=== PATIENT | male | born 1960 | race Hispanic/Latino ===

== ENCOUNTER 2016-09-02 00:26 | Inpatient (IN) | payer OTHER ==
[~2016-09-02] VITALS: Ht 170.2 cm; Wt 86.9 kg
[2016-09-02] VITALS (12 sets, daily range): BP systolic 93–127; BP diastolic 57–88; PULSE 92–111; RESP 16–31; O2SAT 88–96
--- NOTE | 2016-09-02 00:36 | ED.REPORT ---
HPI-Chest Pain 40 and Over Date of Service Sep 02, 2016 ED Provider: Dr. Johnson 56 y/o male with a hx of insulin dependent DM presents to the ED complaining of substernal chest pain that radiates to his left arm, onset an hour ago. The pt has been having chest pain for 2 weeks but it got significantly worse today. He describes it as "fullness and pressure" and rates it 5/10 in the ED. The pain is exacerbated with deep breathing. Associated sx include shortness of breath and "some sort of blockage in the abdomen". The pt did have a BM earlier today but his pain persisted. He denies using Aspirin or other blood thinners. He states his blood glucose at home was 172, in the ED, it is recorded at 157. Nursing Notes Stated Complaint: CHEST PAIN Nursing Notes Reviewed: Yes Allergies: Coded Allergies: No Known Allergies (Unverified , 09/02/16) Scheduled Amlodipine (Amlodipine) 10 Mg Tablet 10 MG PO DAILY Cabergoline (Cabergoline) 0.5 Mg Tablet 0.5 MG PO WEEKLY General Time Seen by MD: 00:53 Chief Complaint Chest pain Arrived By: Walk-in Sudden in Onset?: Yes Onset Occurred: 1 - 4 hours ago Symptom Duration: Since onset Location: : Substernal Quality: Fullness, Pressure Radiation: : Arm left Severity: Current: Pain level 5 out of 10 Severity: Maximum: Severe Recent Healthcare: No recent doctor visit Similar Sx Previous: No Past Medical History Past Medical History Reports: Diabetes mellitus Past Surgical History none reported Smoking History Unknown if Ever Smoker Ambulatory Status Independent Review of Systems Respiratory: Reports: Shortness of breath Cardiovascular: Reports: Chest pain Musculoskeletal: Reports: Extremity pain (left arm) Complete sys rev & neg: except as marked. Physical Exam Initial Vital Signs Vital Signs (First) Date Time Temp Pulse Resp B/P Pulse Ox O2 Delivery O2 Flow Rate FiO2 09/02/16 00:36 37.0 110 18 122/88 96 Room Air 09/02/16 01:10 3 Initial VS: Reviewed, Vital signs abnormal Head / Eyes: Atraumatic, Normocephalic Extremities: Vascular intact, Neuro intact, No swelling, No tenderness Skin: Warm, Dry, No cyanosis General/Constitutional: Awake, Alert, Cooperative Distress / Hydration: Positive: Distress moderate Respiratory / Chest: Atraumatic, Breath sounds NL, Breath sounds = bilat, No rales, No rhonchi, No chest tenderness Cardiovascular: Regular rhythm, Heart sounds NL, No gallop, No murmurs, No rubs Heart Rate / Rhythm: Positive: Tachycardia No edema Abdomen: Atraumatic, Soft Bowel Sounds / Distention: Positive: Bowel sounds tympanitic, Distention moderate Neck: Atraumatic, Supple, Full range of motion, No JVD Neurologic: Oriented X3, Speech NL, No motor deficits, No sensory deficits Interpretation & Diagnostics Lab Results Interpretation Result Diagram: 09/02/16 0040 09/02/16 0040 Test 09/02/16 00:20 09/02/16 00:40 09/02/16 00:50 White Blood Count 12.7th/mm3 (3.8-10.1) Red Blood Count 5.37mil/mm3 (4.40-5.80) Hemoglobin 15.8g/dL (13.8-17.2) Hematocrit 45.5% (41.0-50.0) Mean Corpuscular Volume 84.7fL (81-100) Mean Corpuscular Hemoglobin 29.4pg (27.0-35.0) Mean Corpuscular Hemoglobin Concent 34.7% (32.0-37.0) Red Cell Distribution Width 14.1% (12.3-15.4) Platelet Count 289bil/L (150-400) Neutrophils (%) (Auto) 74.2% (40-74) Lymphocytes (%) (Auto) 12.6% (14-46) Monocytes (%) (Auto) 9.8% (4-12) Eosinophils (%) (Auto) 3.0% (0-5) Basophils (%) (Auto) 0.2% (0-3) Sodium Level 136mEq/L (134-144) Potassium Level 3.9mEq/L (3.5-5.2) Chloride Level 93mEq/L (97-108) Carbon Dioxide Level 24mmol/L (18-29) Blood Urea Nitrogen 11mg/dL (6-24) Creatinine 0.91mg/dL (0.76-1.27) Estimat Glomerular Filtration Rate 92mL/min (>59) Glucose Level 174mg/dL (60-99) Calcium Level 9.2mg/dL (8.5-10.1) Total Bilirubin 1.3mg/dL (0.0-1.2) Aspartate Amino Transf (AST/SGOT) 84U/L (0-50) Alanine Aminotransferase (ALT/SGPT) 49U/L (0-44) Alkaline Phosphatase 85U/L (25-150) Total Protein 7.4g/dL (6.4-8.4) Albumin 4.0g/dL (3.4-5.0) Lactic Acid Level 1.3mmol/L (0.4-2.0) Lab Results Interpretation: Elevated white blood count and elevated troponin ECG Interpretation ECG Interpretation: Sinus tachycardia. Rate 110 Probable left atrial enlargement Nonspecific intraventricular conduction delay Age indeterminate inferior infarct Acute Extensive anterior infarct (LAD) Time: 00:32 Interpreted by: ED physician X-Ray Chest Interpretation Chest Xray Interpretation: Increased heart size. Vascular markings consistent with CHF View: Portable, 1 view Interpretation / Wet Read by: Wet read ED physician Re-Eval/Medical Decision Med Decision/Clinical Course 56-year-old male with several hours of chest pain. He is hemodynamically stable with mild tachycardia. His EKG shows acute STEMI. He was treated with aspirin, IV metoprolol, IV heparin, topical nitroglycerin, and by mouth clopidogrel. Dr. Juarez in the cath team were immediately notified and took the patient to the [facility] for evaluation and treatment. Source of Hx: Old records Time of Eval: 01:16 Re-Evaluation/Progress Note: Rechecked pt. Discussed lab results, imaging results, diagnosis and plan to admit. Pt understands and agrees with the plan for admission. All questions addressed. Consultation : Referral / Consult Name: Dinorah Carter MD Consulted With: Hospitalist Call Returned at: 01:24 Stope Miner: Will see patient, Agrees with eval, Agrees with plan, Accepts admit Counseled Regarding: Diagnosis, Need for admission Discharge & Departure Primary Impression: STEMI (ST elevation myocardial infarction) Involved coronary artery: unspecified coronary artery Qualified Code: I21.3 - ST elevation (STEMI) myocardial infarction of unspecified site Disposition: ADMITTED TO HOSPITAL Discharge Condition All VS Reviewed: Yes Referrals: Donnie Bruce MD (PCP) Crit Care Except Billable Proc Time Spent: 30-74 minutes (55 min) Services Performed: Patient management by me, Time spent at bedside, Reviewing test results, Reviewing imaging, Discussing patient care, Documentation in record Critical Care Notes: STEMI stabilized and taken to the [facility]. Scribe Attestation Portions of this note were transcribed by Phoenix Peck. I, , personally performed the history, physical exam and medical decision- making;I reviewed and confirmed the accuracy of the information in the transcribed note. Signed by Javier Valente. 09/02/16 01:55 copies to: Donnie Bruce MD, Howard L MD Sep 02, 2016 00:36 Phoenix Peck Sep 02, 2016 01:29
[2016-09-02] MEDS ORDERED: Heparin 5,000 Unit/mL Inj ONE (00:47)
[2016-09-02 00:50] LABS: BASOPHILS % (AUTO) 0.2 % (0-3); MONOCYTES % (AUTO) 9.8 % (4-12); Mean Corpuscular Hemoglobin 29.4 pg (27.0-35.0); Mean Corpuscular Volume 84.7 fL (81-100); NEUTROPHILS % (AUTO) 74.2 % (40-74); Platelet Count 289 bil/L (150-400)
[2016-09-02] MEDS ORDERED: Nitroglycerin 2% 1 Gm Ointment TOPICAL ONE (00:50)
[2016-09-02] MEDS ORDERED: MeTOProlol 1 mg/mL 5 mL Inj ONE (00:54)
[2016-09-02] MEDS ORDERED: Nitroglycerin 50,000 mcg/250 mL D5W Premix IV ONE (00:58)
[2016-09-02] MEDS ORDERED: 0.9% Sodium Chloride 1,000 ML ONE (00:58)
[2016-09-02] MEDS ORDERED: Heparin 1,000 Unit/mL 10 mL Inj ONE (00:58)
[2016-09-02] MEDS ORDERED: Heparin 10,000 Unit/1,000 mL NS Premix IV ONE (00:58)
[2016-09-02] MEDS ORDERED: Heparin 1,000 Units/500 mL NS Premix IV ONE (00:58)
[2016-09-02] MEDS ORDERED: fentaNYL-PF 50 mCg/mL 2 mL Inj ONE (01:31)
[2016-09-02 01:35] LABS: TROPONIN T 0.849 ug/L (0.0-0.011)
[2016-09-02] MEDS ORDERED: DOPamine 800 mg/250 mL D5W Premix IV ONE (01:42)
[2016-09-02] MEDS ORDERED: 0.9% Sodium Chloride 1,000 ML IV SCH (02:36)
[2016-09-02] MEDS ORDERED: Alum-Mag Hydrox-Simeth 30 mL Suspension PO PRN (02:40)
[2016-09-02] MEDS ORDERED: Ondansetron 2 mg/mL 2 mL Inj IVPUSH PRN (02:40)
[2016-09-02] MEDS ORDERED: Glucose 40% Oral Gel 15 Gm Tube PO PRN (03:00)
--- NOTE | 2016-09-02 04:15 | PCM.HPMED ---
Subjective Date of Service Sep 02, 2016 Primary Provider: Admitting Physician: Dinorah Carter MD Primary Care Physician: Donnie Bruce MD Attending Physician: Dinorah Carter MD Admit Status: From the Emergency Department Chief Complaint: Chest pain History of Present Illness: 56 y/o male with a hx of insulin dependent DM type II who presented to the ED complaining of substernal chest pain scribed as a pressure and bandlike sensation around his chest with 7 out of 10 chest pain onset approximately 11: 30 Friday night 09/01/2016, the pain occurred while he was exerting himself walking. The pain radiates to his left arm, and is associated with diaphoresis , shortness of breath, and abdominal pain. The pt has been having chest pain for 2 weeks but it got significantly worse today. The pain is exacerbated with deep breathing. The patient describes his abdominal pain as, "some sort of blockage in the abdomen". He states that he has taken laxatives and done enemas and has passed a bowel movement but without relief of his abdominal discomfort and distention. He denies using Aspirin or other blood thinners. He states his blood glucose at home was 172, in the ED, it is recorded at 157. In the ED the patient had EKG showed sinus tachycardia with a rate of 110, extensive ST elevation in leads V1 through V5 and ST segment depression in V6, consistent with anterior lateral infarct. troponin 0.849 Patient was taken to the [facility] by Dr. Juarez for emergent percutaneous coronary intervention. And he was found to have 90% stenosis of his LAD. Patient had stent placed. Vital signs in the ED showed: Temperature 37.0, pulse 110, respiratory rate 18, blood pressure 128/88, pulse ox 96% on room air. Patient at time of this note was satting at 93% on 3 L oxygen mask. In the ED received metoprolol tartrate 15 mg once. Nitroglycerin paste 1 inch once. Plavix 300 mg once area Nitrostat sublingual 0.4 mg once. Aspirin 81 mg. Hemogram showed WBC 5.7, PMNs 74.2%, lymphs 12.6% H/H 15.8/45.5, platelets 289, Chemistry panel: Significant for glucose of 174, total bilirubin elevated 1.3, AST/ALT 84/49 with an alkaline phosphatase of 85, troponin 0.849 TSH is pending CK MB pending Review of Systems: A comprehensive review of systems was conducted and was negative except as mentioned in history of present illness. 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 HEENT: NC/AT, eyes, pupils pinpoint, arcus senilis, PERRLA, EOMI, neck, soft supple, no adenopathy, no JVD, no masses, no thyromegaly, throat mucous membranes pink and moist, no erythema, no exudates, no tonsillar swelling, no uvular deviation. Lungs: Bilateral base with crackles, no use of accessory muscles of respiration , good air movement, good respiratory effort. Heart: Regular rate and rhythm, no murmur, S1-S2 present, no rub, no click, no distant heart sounds, Abdomen: Tympanic to percussion, distended, nontender, bowel sounds active, no rebound, no guarding, Genitourinary: No CVA tenderness, no suprapubic tenderness, no Mays catheter, Extremities: Right lower extremity groin with bandage from recent PCI, pulses equal and symmetric upper/lower extremity including radial and dorsalis pedis, no edema Neurologic: Grossly neurologically intact, aching in full sentences, no focal neurological signs, [id number], [id number], no pronator drift, no hemineglect. Skin: Mildly diaphoretic, otherwise no rash, bandage covering the right groin from PCI seizure Psychiatric mood and affect are congruent and appropriate. Lab and Diagnostics Result Diagram: 09/02/163909/02/1639 Assessment & Plan # Chest pain, NSTEMI, Acute coronary syndrome, present on admission, active -Of note patient had echo done by Dr. Sandoval and cardiac stress testing, per patient approximately 2 years ago with recommendation at that time for cath procedure. She states he declined the cath procedure. -In the ED received metoprolol tartrate 15 mg once. Nitroglycerin paste 1 inch once. Plavix 300 mg once area Nitrostat sublingual 0.4 mg once. Aspirin 81 mg. -Troponin 0.849 -CK-MB ordered and pending -TSH ordered and pending -EKG with severe ST segment elevation in leads V1 to V5 and ST segment depression in lead 6 consistent with a anterior lateral NH. -She was taken to the [facility] by Dr. Barker for PCI. Retrograde left heart cath with balloon angioplasty and stent to left LAD which had 90% stenosis in the proximal portion. 99% stenosis of the mid right coronary artery LVEF of 15%. -We will continue pain control with morphine -Continue daily aspirin 325 mg -Continue with Plavix daily to 75 milligrams -We will continue home medication amlodipine 10 mg daily -Continue medication losartan -Nitroglycerin as needed, but will be careful given blood pressures -We will start high-dose statin atorvastatin 40 mg daily -We will hold off on starting metoprolol given current blood pressures 100 systolic -Continuous cardiac monitoring/blood pressure monitoring -We will order lipid panel -Heart healthy diet -We thank cardiology Dr. Barker for this consult. # Acute abdominal pain, and distention, present on admission, active - bilirubin elevated 1.3, AST/ALT 84/49 with an alkaline phosphatase of 85 -Physical exam significant for tympanic abdomen that is protuberant. -The patient states that his abdominal distention and discomfort has improved since his catheterization procedure however remains somewhat distended. -Differential diagnosis, cholecystitis, ileus versus SBO, no history of prior surgeries. -He states he did have a bowel movement prior to admission but this made no difference with his abdominal distention or discomfort. -If symptoms continue or worsen would consider getting abdominal imaging abdominal ultrasound to evaluate gallbladder, or CT to look for SBO although patient not a candidate for contrast given his recent catheterization. -Will order lactic acid # Acute leukocytosis with left shift, as on admission, active -Likely secondary to STEMI -Patient at time of this note was satting at 93% on 3 L oxygen mask. -Vital signs in the ED showed: Temperature 37.0, pulse 110, respiratory rate 18 , blood pressure 128/88, pulse ox 96% on room air. -WBC 12.7, PMNs 74.2 -CXR showed no acute cardiopulmonary disease # Hyperglycemia in a known type II diabetic - Glucose 174 - Hemoglobin A1c pending - We will hold oral anti-hyperglycemics - We will continue long-acting insulin - We will start low-dose correctional scale - addition of long acting insulin with elevation of glucose # Prolactinoma, presumed stable, - Patient states he has had a prolactinoma for the past 10 years - On Cabergoline, significant other to bring in medications and dosages. We will plan to continue this medication once med rec complete # Hypertension - Patient takes amlodipine 10 mg daily - On losartan dose unknown at this time. - We will plan to continue his antihypertensive medications when med rec complete - We will continue to monitor blood pressures while in-house # Hypothyroidism -Continue medication levothyroxine 12.5 micrograms Disposition: Admitted to in patient service with expected length of stay greater than 2 days, secondary to severity of presenting symptoms, treatment plan, complexity of clinical work up, and risk of adverse events. CODE STATUS: Full code PCP: [facility] Writer/Runner Dr. Sandoval DVT PE prophylaxis: SCD's/SubQ heparin Q8H Contact: Jemma [phone] VTE Prophylaxis: Sub-Q Heparin (Unfractionated), SCDs Resuscitation Status: CPR: Attempt Resuscitation Attending Statement The patient was seen and examined together with house staff on 09/02/2016 and I agree with the history, exam and plan as outlined in the note above. Cole Gregg DO Sep 02, 2016 04:15 Yajaira Edgar DO Sep 02, 2016 06:18
[2016-09-02 04:17] LABS: Magnesium 2.1 mg/dL (1.6-2.6)
[2016-09-02] MEDS ORDERED: Atropine 1 mg/10 mL (Code) Syringe IVPUSH PRN (04:25)
--- NOTE | 2016-09-02 04:26 | HP ---
[address] [address] HISTORY AND PHYSICAL PATIENT: KRISS CASTRO : 1960 MR#: [id number] ADMIT: 09/02/2016 JOB ID: [id number] DATE OF ADMISSION: 09/02/2016 CHIEF COMPLAINT: Chest discomfort. HISTORY OF PRESENT ILLNESS: The patient is a 56-year-old male with history of diabetes, hypertension, and hypercholesterolemia. The patient was in his usual state of health until tonight around 11:30 p.m. when he suddenly developed chest discomfort. It happened while he was walking. He rated it about 7/10. He described as a heavy pressure type. It has radiated to his left arm and his neck. It was associated with shortness of breath and diaphoresis. The patient drove himself to [facility] Emergency Department. EKG showed anterior wall ST-segment elevation. STEMI protocol was activated. PAST MEDICAL HISTORY: 1. Diabetes mellitus for 10 years. 2. Hypertension. 3. Hypercholesterolemia. 4. Pituitary microadenoma. CURRENT MEDICATIONS: 1. Insulin. 2. Amlodipine. 3. Medication for pituitary microadenoma. 4' Losartan. 5. Levothyroxine. ALLERGIES: No known allergies. SOCIAL HISTORY: The patient lives in [place]. He has never smoked. He drinks a couple drinks per week. FAMILY HISTORY: No history of premature coronary artery disease. PHYSICAL EXAMINATION: Reveals a middle-aged male, appearing in no acute distress. Temp is 36.1. Blood pressure is 104/72. Pulse 94. Skin is warm and dry. Face has normal configuration. Anicteric sclerae. Moist mucosa. Neck supple. No jugular venous distention or carotid bruits. Chest normal expansion. Lungs are clear to auscultation. Heart the first and second heart sounds normal. S3 is present. No murmur. Abdomen soft, nontender. No hepatosplenomegaly. Extremities no clubbing, cyanosis, or edema. Peripheral pulses are diminished. Neurologic grossly intact. IMPRESSION: 1. Acute anterior myocardial infarction. 2. Diabetes mellitus. 3. History of hypertension. 4. Hypercholesterolemia. 5. Pituitary microadenoma. PLAN: The patient received aspirin 324 mg, clopidogrel 600 mg, and heparin 5,000 unit in the emergency department. He will undergo emergent coronary angiogram and possible percutaneous intervention. The risks of the procedure has been explained to the patient. He understands and agrees to proceed with the procedure. His regular table tender sludge is Dr. Sandoval. BETO
--- NOTE | 2016-09-02 04:40 | DI95 ---
[place] [id number] INTERVENTIONAL CARDIAC CATHETERIZATION PATIENT: KRISS CASTRO : 1960 MR#: [id number] ADMIT: 09/02/2016 JOB ID: [id number] DATE OF PROCEDURE: 09/02/2016 PATIENT PROFILE: The patient is a 56-year-old male with history of diabetes, hypertension, hypercholesterolemia, and pituitary microadenoma. He presented with acute anterior myocardial infarction. PROCEDURE: 1. Retrograde left heart catheterization. 2. Selective coronary angiography. 3. Balloon angioplasty and stenting to the proximal left anterior descending. 4. Left ventricular angiogram. 5. Vascular closure device Perclose. COMPLICATIONS: None. METHOD: Retrograde left heart catheterization was performed from the right groin under 1% lidocaine local anesthesia using a 6-Brazilian sheath. Selective coronary angiogram was performed in multiple projections, including cranial and caudal angulations with hand injected contrast via JL4 and 3DRC catheters. Heparin 100 units/kg were given. The guide catheter was changed to a 6-Brazilian JL3.5 guide. A Runthrough wire was placed inside the left anterior descending artery. The proximal left anterior descending artery lesion was pre-dilated with a 2.5 x 15 mm balloon. A Xience 2.75 x 15 mm stent was placed inside the proximal left anterior descending artery lesion and deployed at 10 atmospheres for 20 seconds. After this stent deployment appears to be another distal lesion. A Xience 2.5 x 8 mm stent was placed distal to the first stent and deployed at 14 atmospheres for 20 seconds. Nitroglycerin 100 mcg was given intracoronary. The distal left anterior descending artery lesion was dilated with a 2.0 x 15 mm balloon. Final angiogram was obtained. A 6-Brazilian angulated pigtail catheter was advanced to the left ventricle and left sina angiogram was performed in the 30 degree MARTINEZ view by injecting contrast at the rate of 10 cc/second for 3 seconds and this catheter was withdrawn. Angiogram was performed before sheath removal, hemostasis was achieved by using a Perclose device. The patient tolerated the procedure well. He was transferred to Intensive Care Unit in good condition. TOTAL CONTRAST USED: 140 cc. FLUOROSCOPY TIME: 5.8 minutes. TOTAL RADIATION DOSE: 826 milligray. RESULTS: 1. Selective angiogram: a. Left main coronary artery is short and normal. b. Left anterior descending artery is transapical and has severe eccentric 98% stenosis in the proximal portion with diffuse disease throughout and it becomes occluded in the distal portion just right at the apex. The diagonal branches has diffuse severe stenosis. c. Circumflex artery has diffuse disease with 60% stenosis in the midportion and 40% to 50% stenosis in the distal portion. d. The dominant right coronary artery has critical 99% stenosis in the midportion with ROBERT-1 flow. There is left to right collaterals. 2. Balloon angioplasty and stenting was performed to the tight culprit proximal left anterior descending artery lesion by deploying 2 drug-eluting stents to achieve an excellent angiographic result with ROBERT-3 flow distally. 3. The distal left anterior descending artery is too small. 4. Left ventricular angiogram demonstrated dilated left ventricle with ejection fraction 15% to 20%. The apical 2/3 of the anterolateral wall is akinetic. The inferior wall is akinetic. The small apical segment is dyskinetic. Only the of the anterolateral wall contract normally. 5. There is no gradient across the aortic valve on catheter withdrawal. 6. Aortic pressure is 93/67 mmHg. Left ventricular pressure is 92/18 mmHg. 7. Left ventricular end-diastolic pressure is 34 mmHg. CONCLUSION: 1. Diffuse atherosclerotic plaque throughout, typical of diabetes. 2. Critical 98% stenosis of the proximal left anterior descending artery and this was successfully treated with two drug-eluting stents. 3. Critical 99% stenosis of the mid right coronary artery with ROBERT-1 flow with faint left to right collaterals. 4. Left ventricular ejection fraction 15%. 5. LVEDP is 34 mmHg. PLAN: Intervention to the mid right coronary artery will be performed later. BETO
--- NOTE | 2016-09-02 05:16 | NUR ---
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, pt drowsy but oriented times three, coop, compliant with post cath activity, admit info done per info from pt, pt's melanie will bring in his med list in am and she also took pt's wallet home with her, pulses present, right groin soft, dressing with dime size superficial drainage on it but no hematoma, hnv denies n/v, abd snt, bt present, sarah sips h20 post cath, ivf at 80ml/hr for six hours, denies cp/pressure, tele- sr, post cath ekg done, denies sob, pt on oxymask at three liters, sats mid 90's, pt is mouth breather, ls-cl/decreased see ccu flow sheet, see admit charting, Addendum: 09/02/16 at 0644 by ETHAN MONTIEL RN pt denies cp/pressure or arm discomfort like when he came to er, pt c/o abd distention/bloating, abd round/soft, resident in to see pt, abd us ordered,
[2016-09-02 05:35] LABS: TROPONIN T 3.94 ug/L (0.0-0.011)
[2016-09-02] MEDS ORDERED: AMLO10TA3 PO (06:48)
[2016-09-02] MEDS ORDERED: CABE0.5T7 PO (06:50)
[2016-09-02] MEDS ORDERED: LEVO-86 PO (07:05)
[2016-09-02] MEDS ORDERED: LOSA1TAB69 PO (07:06)
[2016-09-02] MEDS: Heparin 5,000 Unit/mL Inj SUBQ SCH ×2 (07:53→16:41)
--- NOTE | 2016-09-02 08:00 | DRSVH ---
PROCEDURE: X-RAY CHEST ONE VIEW, PORTABLE ([id number]) INDICATIONS: 56-year-old male with ST elevation myocardial infarction chest pain. TECHNIQUE: One view of the chest was acquired. COMPARISON: None. FINDINGS: Surgical changes and devices: None. Lungs and pleura: No pleural effusions or pneumothorax. Widespread pulmonary interstitial prominence is present. No acute airspace opacities. Mediastinum: Mediastinal contours appear normal. Heart size is normal. Bones and chest wall: No suspicious bony lesions. Overlying soft tissues appear unremarkable. Visua lized upper abdominal bowel gas pattern appears normal. IMPRESSION: Diffuse interstitial pulmonary edema, consistent with evolving congestive heart failure. Dictated by: Anderson Costa M.D. on 09/02/2016 at 7:57 Approved by: Anderson Costa M.D. on 09/02/2016 at 7:58
[2016-09-02] MEDS ORDERED: HCTZ PO SCH (08:30)
[2016-09-02] MEDS ORDERED: LOSARTAN PO SCH (08:30)
--- NOTE | 2016-09-02 09:04 | DRSVH ---
PROCEDURE: US ABDOMEN INDICATIONS: Abdominal distention and elevated LFTs and bili TECHNIQUE: Real-time scanning was performed of the abdominal and retroperitoneal organs, with image documentatio n. COMPARISON: None. FINDINGS: Liver length: 18.9 Gallbladder Wall Thickness: 2 mm CHD: 1.70 mm CBD: 2.30 mm Spleen length: 9.53 cm Right kidney length: 12.12 cm Left kidney length: 12.17 cm Aorta(Proximal): 2.53 cm Aorta(Mid): 1.84 cm Aorta(Distal): 1.95 cm RCIA: Obscured LCIA: Obscured Liver: Liver is mildly enlarged in size and hyperechoic in echotexture. There is suspected fatty spa ring adjacent to the gallbladder fossa. Gallbladder: Gallbladder is clear with normal wall thickness. No pericholecystic free fluid. No repor alesha positive Carvajal's sign. Biliary ducts: Intrahepatic bile ducts are non-dilated. Extrahepatic bile duct caliber is normal. Normal is 6-7 mm or less in diameter, or 10 mm or less post-cholecystectomy. Pancreas: Visualized portions of the pancreas are sonographically normal. Spleen: Spleen is normal in size and homogeneous in echotexture. Kidneys: Kidneys are normal in size and echotexture. No hydronephrosis or measurable nephrolithiasi s, bright reflectors bilaterally possibly representing small calcifications. No solid masses. Aorta: Visualized aorta is normal in caliber at less than 3 cm. distal aorta not well-seen. Iliacs: Iliac vessels are obscured by bowel gas. IVC: Intrahepatic inferior vena cava is patent. Miscellaneous: No free abdominal fluid. Small bilateral pleural effusions. IMPRESSION: 1. Borderline hepatomegaly without splenomegaly. Probable hepatic steatosis but nonspecific. 2. Normal gallbladder and bile ducts. 3. No hydronephrosis. Possibility of small nonobstructing renal calculi not excluded. 4. No ascites. Small bilateral pleural effusions incidentally noted. Dictated by: Kai Echols M.D. on 09/02/2016 at 8:56 Approved by: Kai Echols M.D. on 09/02/2016 at 9:02
[2016-09-02] MEDS: Insulin LISPRO 300 Unit/3 mL Inj SUBQ SCH ×4 (09:09→21:07)
[2016-09-02 10:23] LABS: TROPONIN T 5.82 ug/L (0.0-0.011)
[2016-09-02] MEDS ORDERED: Lactulose 20 Gm/30 mL 30 mL Syrup PO ONE (12:05)
--- NOTE | 2016-09-02 14:13 | NUR ---
Post heart cath/cardiac/GI R groin site soft, scant old blood under clear dsg, palpable pedal pulses. Denies CP/Pressure. ST low 100s to 1-teens, ST depression still present. Pt c/o significant abd distention and bloating, that has been ongoing for the last few days. Denies nasuea. Reports distention makes it difficult to breathe. Abd US done, see results. Lactulose PO administered, Fleetz enema ordered, will administer this afternoon. 3L NC to maintain SpO2 92-94%. Uses call light to make needs known. Addendum: 09/02/16 at 1701 by YUNIOR LOPEZ RN Post lactulose pt has had BM x3. Declines enema.
--- NOTE | 2016-09-02 15:15 | PCM.PNMED ---
Subjective Date of Service Sep 02, 2016 Subjective Overnight the patient was admitted for a STEMI where Dr. Barker stented him. Since then he has been stable, denying chest pain and SOB. His only complaint is the feeling of a full abdomen. He has tried a suppository and enema prior to admission but without success. He denies any fever/chills, nausea or vomiting, diarrhea. Exam Vital Signs Vital Sign - Last Date Time Temp Pulse Resp B/P Pulse Ox O2 Delivery O2 Flow Rate FiO2 09/02/16 12:08 36.7 103 20 103/66 90 Nasal Cannula 4.00 Intake and Output 09/01/16 09/01/16 09/02/16 Cumulative From/Thru 15:00 23:00 07:00 09/02/16 00:36 - 09/02/16 06:11 Intake Total 481 ml 481 ml Output Total 0 ml 0 ml Balance 481 ml 481 ml Intake Oral 200 ml 200 ml IV Total 281 ml 281 ml Output Urine Total 0 ml 0 ml # Bowel Movements 0 0 Exam General: Elderly male laying on his side in NAD HEENT: NCAT, PERRLA, EOMI, membranes pink and moist Neck: soft supple, no adenopathy, no JVD, no masses, no thyromegaly Lungs: poor inspiratory effort but clear to ascultation bilaterally, no wheezes/ rales/rhonchi Heart: RRR, normal S1-S2 present, no murmur/rub/click Abd: Taunt, distended but without tenderness. Bowel sounds present, tympanic on percussion. No guarding. Genitourinary: No CVA tenderness, no suprapubic tenderness, no Mays catheter, Extremities: Right lower extremity groin with bandage from recent PCI, no clubbing/cyanosis/edema Neurologic: CN 2-12 intact, muscle strength normal in all extremities. No focal deficits. Skin: Mildly diaphoretic, otherwise no rash, bandage covering the right groin from PCI procedure Psychiatric normal mood and affect IVs and Medications Medications Reviewed: Medications were reviewed in detail Medications Stopped captopril due to his losartan/HCTZ combo 09/02 Lab and Diagnostics Result Diagram: 09/02/16 0040 09/02/16 0320 Microbiology MRSA negative X-Rays, CTs and MRIs CXR 09/02 IMPRESSION: Diffuse interstitial pulmonary edema, consistent with evolving congestive heart failure. Dictated by: Anderson Costa M.D. on 09/02/2016 at 7:57 Approved by: Anderson Costa M.D. on 09/02/2016 at 7:58 Abd 09/02 IMPRESSION: 1. Borderline hepatomegaly without splenomegaly. Probable hepatic steatosis but nonspecific. 2. Normal gallbladder and bile ducts. 3. No hydronephrosis. Possibility of small nonobstructing renal calculi not excluded. 4. No ascites. Small bilateral pleural effusions incidentally noted. Dictated by: Kai Echols M.D. on 09/02/2016 at 8:56 Approved by: Kai Echols M.D. on 09/02/2016 at 9:02 Assessment & Plan 56 y/o male with a hx of insulin dependent DM type II who presented to the ED complaining of substernal chest pain scribed as a pressure and bandlike sensation around his chest with 7 out of 10 chest pain onset approximately 11: 30 Friday night 09/01/2016, the pain occurred while he was exerting himself walking. The pain radiates to his left arm, and is associated with diaphoresis , shortness of breath, and abdominal pain. The pt has been having chest pain for 2 weeks but it got significantly worse today. The pain is exacerbated with deep breathing. The patient describes his abdominal pain as, "some sort of blockage in the abdomen". He states that he has taken laxatives and done enemas and has passed a bowel movement but without relief of his abdominal discomfort and distention. He denies using Aspirin or other blood thinners. He states his blood glucose at home was 172, in the ED, it is recorded at 157. Chest pain due to NSTEMI, present on admission, resolved - Pt presented with chest pain, EKG severe ST segment elevation in leads V1 to V5 and ST segment depression in lead 6 - Troponin 3.94, CK-MB 289 on admission - Pt taken to cathode [facility] tube salvage [facility] with Dr. Barker on 09/02: 1. Diffuse atherosclerotic plaque throughout, typical of diabetes. 2. Critical 98% stenosis of the proximal left anterior descending artery and this was successfully treated with two drug-eluting stents. 3. Critical 99% stenosis of the mid right coronary artery with ROBERT-1 flow with faint left to right collaterals. 4. Left ventricular ejection fraction 15%. 5. LVEDP is 34 mmHg. -Continue pain control with morphine -Continue daily aspirin 325 mg -Continue with Plavix daily to 75 milligrams -Continue home medication amlodipine, losartan -Start carvedilol 6.125 mg daily -Start atorvastatin 40 mg daily -Continuous cardiac monitoring/blood pressure monitoring -Lipid panel pending -Heart healthy diabetic diet -Pt will need to be NPO 09/03 in preparation of his RCA stent with Dr. Barker on 09/04 Acute abdominal pain, and distention, present on admission, active -Bilirubin elevated 1.3, AST/ALT 84/49 with an alkaline phosphatase of 85 -Exam significant for tympanic abdomen that is protuberant. -Cholecystitis vs ileus vs SBO, no history of prior surgeries. -Lactic acid 1.3 -Abd US as above -Lactulose, mineral oil enema ordered for constipation relief Acute leukocytosis with left shift, as on admission, active -Likely secondary to STEMI -Patient at time of this note was satting at 90% on 4L nasal cannula. -Vital signs are tachycardic but afebrile, pt denies fever/chills/nausea/ vomiting/diarrhea -WBC 12.7, PMNs 74.2 -CXR showed no acute cardiopulmonary disease -Continue to trend CBC and vitals Hyperglycemia in a known type II diabetic, present on admission, ongoing - Glucose 190 - Hemoglobin A1c pending - Hold oral anti-hyperglycemics - Continue long-acting insulin - Low-dose correctional scale - addition of long acting insulin with elevation of glucose Prolactinoma, presumed stable, - Patient states he has had a prolactinoma for the past 10 years - On Cabergoline 0.5mg daily Hypertension - Continue amlodipine 10 mg daily - Continue losartan 50mg daily - Start carvedilol 6.125mg daily - We will continue to monitor blood pressures while in-house Hypothyroidism -Continue medication levothyroxine 12.5 micrograms Disposition: Patient will likely be admitted for the next 2-3 days, depending on the resolution of his abdominal issues and response to upcoming catheterization procedure on Monday 09/04. CODE STATUS: Full code PCP: Dr. Bruce Formula Maker Dr. Sandoval DVT PE prophylaxis: SCD's/SubQ heparin Q8H Contact: Jemma [phone] Pain Evaluation: Adequate Pain Control VTE Prophylaxis: Sub-Q Heparin (Unfractionated), SCDs Resuscitation Status: CPR: Attempt Resuscitation Attending Statement The patient was seen and examined together with Dr. Quigley on 09/02/2016 and I agree with the history, exam and plan as outlined in the note above. . Koko Quigley DO Sep 02, 2016 15:15 Miguel Gordon MD Sep 02, 2016 17:04 Resuscitation Status: CPR: Attempt Resuscitation Koko Quigley DO Sep 02, 2016 15:15
[2016-09-02 16:47] LABS: TROPONIN T 5.3 ug/L (0.0-0.011)
--- NOTE | 2016-09-02 18:40 | NUR ---
Groin site minimal sanguineous drainage, no oozing/swelling/hematoma noted. Moving in room independently, denies chest pain, patient states he will take more lactulose in the AM. Tele sinus tach 100s with ST depression.
[2016-09-03] VITALS (10 sets, daily range): BP systolic 94–127; BP diastolic 61–86; PULSE 92–106; RESP 18–24; O2SAT 91–96
[2016-09-03] MEDS: Heparin 5,000 Unit/mL Inj SUBQ SCH ×3 (00:36→16:21)
[2016-09-03 05:16] LABS: BASOPHILS % (AUTO) 0.2 % (0-3); EOSINOPHILS % (AUTO) 1.8 % (0-5); MONOCYTES % (AUTO) 10.4 % (4-12); Mean Corpuscular Hemoglobin 28.9 pg (27.0-35.0); Mean Corpuscular Volume 85.6 fL (81-100); NEUTROPHILS % (AUTO) 76.4 % (40-74); Platelet Count 310 bil/L (150-400)
--- NOTE | 2016-09-03 05:59 | NUR ---
Tele/mobility/sats Tele continues sinus rhythm in 's. Denies chest pain and has been up ad alexey in room without dizziness, or other problems. Right groin site remains soft and without bruising or tenderness. Continues on 4 liters nasal cannula.
[2016-09-03] MEDS: Lactulose 20 Gm/30 mL 30 mL Syrup PO PRN (06:19)
--- NOTE | 2016-09-03 08:26 | PROG NOTE ---
[address] [address] PROGRESS NOTE PATIENT: KRISS CASTRO : 1960 MR#: [id number] ADMIT: 09/02/2016 JOB ID: [id number] DATE: 09/03/2016 SUBJECTIVE: The patient is a 56-year-old male who was previously evaluated by Dr. Sandoval in 2014 because of exertional dyspnea with an echocardiogram that suggested an ejection fraction of around 45% to 50% and myocardial perfusion imaging study in May 2014 that showed a small reversible perfusion defect in the inferior wall, but no angina. Cardiac catheterization was offered, but was deferred. He last saw Dr. Snadoval on March 20, 2015. He was reportedly asymptomatic and had a blood pressure 168/76. Repeat echocardiography was ordered, but never accomplished, and he was lost to followup until he was admitted yesterday with a 2-week history of exertional chest pain culminating in severe substernal chest discomfort that awakened him from sleeping. He was found to have anterior ST elevation and a positive troponin and was taken to the cardiac catheterization laboratory where he was found to have a 98% proximal LAD lesion with complete occlusion of the apical portion of the LAD and this was treated with two drug-eluting stents to the proximal LAD. There is a 60% to 70% stenosis in the mid left circumflex and a subtotal occlusion in the mid right coronary artery. His ejection fraction was estimated at 15-20% with severe hypokinesis and akinesis of the distal 2/3 of the left ventricle. LVEDP was 34 mmHg. There are plans to have him repeat angiography with probable PCI to the RCA tomorrow. He has had no further chest discomfort, although continues to complain of abdominal distention, which has been present for the last 4-5 days with a sense of restricted breathing, although this has improved with laxatives. He has had fleeting chest discomfort this morning, but none otherwise. His breathing is somewhat worse while supine, but again relates this more to the abdominal discomfort. He had an abdominal ultrasound yesterday, which was unremarkable. PHYSICAL EXAMINATION: Comfortable appearing middle-aged male. HR 92, BP 106/61, O2 saturation 91% on room air. Blood pressures have been in the 90-100 range. Weight this morning is 89.1 kg from 87.23 kg on admission. Lungs somewhat reduced breath sounds, but no appreciable rales or wheeze. Cardiovascular regular rate and rhythm, slightly tachycardic without any appreciable murmurs or gallops. JVP is difficult to assess. Abdomen soft, nondistended, nontender. Extremities warm without edema. The right groin site appears stable without any hematoma or bruit. LABORATORY: White count this morning is 12.3 with hematocrit of 46%. His potassium this morning was 5.6 with a bicarb of 22 and a BUN of 20 and a creatinine of 0.8. Glucose was 157. Peak CK was 4841, with an MB of 349 and his troponin peaked at 5.82. His LDL this morning is 146 with an HDL of 26. ECG: Shows a sinus rhythm at 101 BPM with anteroseptal Q-waves and persistent ST elevation in the anterior leads with small Q-waves inferiorly. Telemetry shows sinus rhythm and sinus tach between 95 and 105 BPM. IMPRESSION: 1. Probable extensive anterolateral ST-elevation myocardial infarction now with a significant ischemic cardiomyopathy. While it is not clear to what degree there may be viable myocardium, given his electrocardiogram and significant troponin leak, I am concerned that he has suffered a significant amount of myocardial damage. Attempts at revascularizing the RCA and left circumflex should be considered in an attempt to optimize his left ventricular systolic function. At this point, I suspect that he may have some degree of volume overload that may be contributing to his dyspnea and will initiate low-dose diuretic, but with close observation of his blood pressure. At this time I will discontinue his amlodipine and losartan. Will obtain an echocardiogram today to reassess left ventricular systolic function and also obtain a chest x-ray to assess for any pulmonary edema. We will keep him n.p.o. in anticipation of his procedure tomorrow. Depending upon his clinical course of blood pressure, low-dose angiotensin-converting enzyme inhibitor can be restarted but with close observation of his potassium which is significantly elevated today. Hopefully this will improve with diuretic therapy. If his echocardiogram confirms severely reduced left ventricular systolic function, then I would anticipate discharging him with a life vest for protection from malignant arrhythmias, and he may require an implantable cardioverter defibrillator implantation after optimal medical therapy and reassessment of his left ventricular systolic function in three months. 2. Hyperlipidemia. I will increase his atorvastatin to 80 mg daily. 3. Hypothyroidism. TSH was normal. 4. Diabetes. Per the hospitalist. 5. Abdominal distention. I am uncertain what this reflects. Management per the hospitalist. PLAN: 1. Hold amlodipine and losartan and initiate low-dose furosemide. 2. Recheck potassium levels. 3. Nothing p.o. after midnight. 4. Obtain a chest x-ray and echocardiogram. 5. Anticipate revascularization to the right coronary artery and possible left circumflex tomorrow. I spent 50 minutes reviewing the patient's medical record, interviewing and examining the patient, and documenting such. BERNABED
--- NOTE | 2016-09-03 09:39 | DRSVH ---
PROCEDURE: X-RAY CHEST ONE VIEW, PORTABLE ([id number]) INDICATIONS: dyspnea TECHNIQUE: One view of the chest was acquired. COMPARISON: [facility], CR, XR CHEST 1VW (PORTABLE), 09/02/2016, 0:33. FINDINGS: Surgical changes and devices: None. Lungs and pleura: The new small left-sided pleural effusion with bibasilar interstitial pulmonary opa cities left greater than right. Mediastinum: Mediastinal contours appear normal. Heart size is normal. Bones and chest wall: No suspicious bony lesions. Overlying soft tissues appear unremarkable. IMPRESSION: New small left-sided pleural effusion with bibasal interstitial pulmonary opacities may r epresent infection and/or fluid imbalance. Dictated by: Josué Hughes M.D. on 09/03/2016 at 9:31 Approved by: Josué Hughes M.D. on 09/03/2016 at 9:32
[2016-09-03] MEDS: Insulin LISPRO 300 Unit/3 mL Inj SUBQ SCH ×5 (09:43→21:07)
--- NOTE | 2016-09-03 14:22 | DRSVH ---
[facility] [address] [place] [address] Echocardiogram Report Name: KRISS CSATRO BStudy Date: 09/03/2016 Height: 67 in Hospital Exam Location: [facility] Weight: 19 6 lb Gender: Male BSA: 2.0 m2 : 1960 Age: 56 yrs BP: 106/61 mmHg Reason For Study: POST STEMI Ordering Physician: Performed By: Soheila Ma Referring Physician: [facility] Hospitalist Interpretation Summary Left ventricular size is at the upper limits of normal but is unchanged compared to the previous study. Left ventricular systolic function is severely reduced with the ejection fraction estimated to be 15-20% which is markedly worse compared to the prior exam, now with akinesis of of the entire septum and majority of the anterior wall, extending to and including the distal periapical segments. The inferior wall has severe hypokinesis to akinesis. The posterolateral wall has fairly norml contractility. These wall motion abnormalities are new compared to the previous study. The E/A wave ratio > 2.0 could be indicative of increased preload and is significantly higher compared to the previous study. The right ventricle is at the upper limits of normal in size and right ventricular systolic function is mild to moderately reduced and appears slightly worse compared to the previous study. The right ventricular systolic pressure is estimated at to be at least 31 mmHg assuming a right atrial pressure of 8 mm Hg. The left atrium is mildly dilated and has mildly increased in size since the prior echo exam. Right atrial size is normal. There is mild to moderate mitral regurgitation that is more prominent compared to the previous study. There is no other significant valvular heart disease. The ascending aorta is at the upper limits of normal in size and measures slightly larger compared to the previous study. There is a moderate left-sided pleural effusion that is new compared to the previous study. There is no pericardial effusion. Procedure: A two-dimensional transthoracic echocardiogram with color flow and Doppler was performed. Comparison is made with the echocardiogram of 07/05/2014. The study quality was technically adequate. The patient was in normal sinus rhythm during the exam. The heart rate ranged between 93-117 bpm during the study. Left Ventricle: Left ventricular size is at the upper limits of normal. This is unchanged compared to the previous study. Left ventricular wall thickness is mildly increased. There is no thrombus. Left ventricular systolic function is severely reduced. The ejection fraction is estimated to be 15-20%. Compared to the prior exam, left ventricular function is markedly decreased. There is akinesis of of the entire septum and majority of the anterior wall, extending to and including the distal periapical segments. The inferior wall has severe hypokinesis to akinesis. The posterolateral wall has fairly norml contractility. These wall motion abnormalities are new compared to the previous study. Decreasing the preload to the left ventricle with a valsalva maneuver caused a restrictive filling pattern to return to a more normal pattern. The E/A wave ratio > 2.0 could be indicative of increased preload or reduced atrial contractility. Clinical correlation is necessary. This is significantly higher compared to the previous study. Right Ventricle: The right ventricle is at the upper limits of normal in size. Right ventricular systolic function is mild to moderately reduced. This is slightly worse compared to the previous study. Atria: The left atrium is mildly dilated. The left atrium has mildly increased in size since the prior echo exam. Right atrial size is normal. There is no Doppler evidence for an interatrial shunt. Mitral Valve: The mitral valve is normal. There is mild to moderate mitral regurgitation. This is more prominent compared to the previous study. Aortic Valve: The aortic valve is normal in structure and function. The aortic valve is trileaflet. The aortic valve is slightly calcified. The aortic valve opens well. No aortic regurgitation is present. Tricuspid Valve: The tricuspid valve is normal in structure and function. There is trace tricuspid regurgitation. The right ventricular systolic pressure is estimated at to be at least 31 mmHg assuming a right atrial pressure of 8 mm Hg. Comparison with the previous study is not possible because this was unable to be assessed on the previous study. Pulmonic Valve: The pulmonic valve is not well seen, but is grossly normal. There is a trace or physiologic amount of pulmonic regurgitation. There is no other significant valvular heart disease. Great Vessels: The aortic root is normal size. The ascending aorta is at the upper limits of normal in size. This is slightly larger compared to the previous study. The aortic arch could not be visualized. The IVC is of normal diameter and collapses less than 50% with a sniff. This suggests a right atrial pressure of 8 mm Hg. Pericardium/ Pleura There is no pericardial effusion. There is a moderate left-sided pleural effusion. This is new compared to the previous study. MMode/2D Measurements & Calculations LVIDd: 5.4 cm RA long axis: 4.4 cm LVOT diam LVIDs: 4.2 cm LA A2 area: 23.5 cm FS: 22.2 % LA A4 area: 22.1 cm RA area: 14.7 cm Ao root diam EPSS: 1.5 cm LA length (vol): 5.9 cm RA vol: 41.2 ml IVSd: 1.1 cm LA vol: 75.1 ml RA : 20.6 ml/m2 Aortic Jxn LVPWd: 1.1 cm LA vol index asc Aorta Diam: 3.3 cm IVC diam: 2.0 cm EDV(MOD-sp2) LV hightower. diameter/BSA LV sys. diameter/BSA RVD1 (basal) (cm/m^2): 2.7 (cm/m^2): 2.1 : 3.9 cm ESV(MOD-sp2) EF(MOD-sp2) RVD2 (mid) TAPSE: 1.5 cm : 3.0 cm Doppler Measurements & Calculations Ao V2 max MV E max dae MV E/A: 2.0 TR max dae : 104.0 cm/sec : 92.1 cm/sec Med Peak E' Dae : 241.8 cm/sec Ao max PG MV A max dae TR max PG : 4.3 mmHg : 45.1 cm/sec E/E' med: 31.2 : 23.4 mmHg Ao mean PG MV P1/2t: 29.8 msecLat Peak E' Dae PA V2 max : 55.6 cm/sec LVOT Max Dae MR ERO: 0.11 cm2 E/E' lat: 17.4 PA mean PG : 54.2 cm/sec E/e' average: 24.3 : 0.65 mmHg PA Accel Time TIMBO(I,D): 2.3 cm : 0.07 sec sev ratio MV dec time MV P1/2t max dae Ao V2 mean LV V1 max PG : 0.10 sec : 73.4 cm/sec MVA(P1/2t): 7.4 cm2Ao V2 VTI: 15.3 cm LV V1 VTI: 8.1 cm TIMBO(V,D): 2.3 cm2 MR flow rate PA V2 mean TIMBO indexed to BSA : 43.1 cm3/sec : 37.2 cm/sec (cm^2/m^2): 1.2 MR PISA radius Reading Physician:02:21 PM
--- NOTE | 2016-09-03 16:31 | PCM.PNMED ---
Subjective Date of Service Sep 03, 2016 Subjective Overnight there were no acute events. This morning, Mr. Skinner reports feeling much better than yesterday. He feels like he can breathe better now that his abdomen is not so distended, and can move around without pain at this point. He denies any fevers/chills, nausea/ vomiting, abdominal pain or shortness of breath. Exam Vital Signs Vital Sign - Last Date Time Temp Pulse Resp B/P Pulse Ox O2 Delivery O2 Flow Rate FiO2 09/03/16 12:39 36.6 98 18 104/68 94 Nasal Cannula 4.00 Intake and Output 09/02/16 09/02/16 09/03/16 Cumulative From/Thru 15:00 23:00 07:00 09/02/16 00:36 - 09/03/16 04:54 Intake Total 271 ml 752 ml Output Total 0 ml Balance 271 ml 752 ml Intake Oral 200 ml IV Total 271 ml 552 ml Output Urine Total 0 ml # Bowel Movements 0 Exam General: Elderly sitting upright watching TV in NAD HEENT: NCAT, PERRLA, EOMI, membranes pink and moist Neck: soft supple, no adenopathy, no JVD, no masses, no thyromegaly Lungs: CTA bilaterally, no wheezes/rales/rhonchi Heart: RRR, normal S1-S2 present, no murmur/rub/click Abd: Soft, nontender, nondistended. Bowel sounds present, tympanic on percussion. No guarding. Genitourinary: No CVA tenderness, no suprapubic tenderness, no Mays catheter, Extremities: Right lower extremity groin with bandage from recent PCI, no clubbing/cyanosis/edema Neurologic: CN 2-12 intact, muscle strength normal in all extremities. No focal deficits. Skin: Warm, dry Psychiatric normal mood and affect IVs and Medications Medications Reviewed: Medications were reviewed in detail Lab and Diagnostics Result Diagram: 09/03/16 0500 09/03/16 0945 Microbiology MRSA negative X-Rays, CTs and MRIs CXR 09/02 IMPRESSION: Diffuse interstitial pulmonary edema, consistent with evolving congestive heart failure. Dictated by: Anderson Costa M.D. on 09/02/2016 at 7:57 Approved by: Anedrson Costa M.D. on 09/02/2016 at 7:58 Abd US 7/3 IMPRESSION: 1. Borderline hepatomegaly without splenomegaly. Probable hepatic steatosis but nonspecific. 2. Normal gallbladder and bile ducts. 3. No hydronephrosis. Possibility of small nonobstructing renal calculi not excluded. 4. No ascites. Small bilateral pleural effusions incidentally noted. Dictated by: Kai Echols M.D. on 09/02/2016 at 8:56 Approved by: Kai Echols M.D. on 09/02/2016 at 9:02 Cardiac Echo Impressions Echo 09/03/2016 Left ventricular size is at the upper limits of normal but is unchanged compared to the previous study. Left ventricular systolic function is severely reduced with the ejection fraction estimated to be 15-20% which is markedly worse compared to the prior exam, now with akinesis of of the entire septum and majority of the anterior wall, extending to and including the distal periapical segments. The inferior wall has severe hypokinesis to akinesis. The posterolateral wall has fairly norml contractility. These wall motion abnormalities are new compared to the previous study. The E/A wave ratio > 2.0 could be indicative of increased preload and is significantly higher compared to the previous study. Assessment & Plan 56 y/o male with a hx of insulin dependent DM type II who presented to the ED complaining of substernal chest pain scribed as a pressure and bandlike sensation around his chest with 7 out of 10 chest pain onset approximately 11: 30 Friday night 09/01/2016, the pain occurred while he was exerting himself walking. The pain radiates to his left arm, and is associated with diaphoresis , shortness of breath, and abdominal pain. The pt has been having chest pain for 2 weeks but it got significantly worse today. The pain is exacerbated with deep breathing. The patient describes his abdominal pain as, "some sort of blockage in the abdomen". He states that he has taken laxatives and done enemas and has passed a bowel movement but without relief of his abdominal discomfort and distention. He denies using Aspirin or other blood thinners. He states his blood glucose at home was 172, in the ED, it is recorded at 157. Chest pain due to NSTEMI, present on admission. Resolved. - Pt presented with chest pain, EKG severe ST segment elevation in leads V1 to V5 and ST segment depression in lead 6 - Troponin 3.94, CK-MB 289 on admission - Pt taken to laborer salvage with Dr. Barker on 09/02: 1. Diffuse atherosclerotic plaque throughout, typical of diabetes. 2. Critical 98% stenosis of the proximal left anterior descending artery and this was successfully treated with two drug-eluting stents. 3. Critical 99% stenosis of the mid right coronary artery with ROBERT-1 flow with faint left to right collaterals. 4. Left ventricular ejection fraction 15%. 5. LVEDP is 34 mmHg. - Echo 09/03/16 as above -Continue pain control with morphine -Continue daily aspirin 325 mg, plavix 75mg -Hold amlodipine, losartan per Cardiology recommendations -Start carvedilol 6.125 mg daily -Increased atorvastatin to 80mg daily -Continuous cardiac monitoring/blood pressure monitoring -Lipid panel reveals LDL 145.6, ratio 7.5 -Heart healthy diabetic diet -Pt will need to be NPO 09/03 in preparation of his RCA/Left circumflex stents with Dr. Barker on 09/04 Acute abdominal pain, and distention, present on admission. Resolved. - LFT's starting to trend down -Abdominal exam now benign, non-distended, non-tender -Cholecystitis vs ileus vs SBO, no history of prior surgeries. -Lactic acid 1.3 -Abd US as above -Lactulose ordered again for this morning 09/03 due to constipation Acute leukocytosis with left shift, as on admission, active -Likely secondary to STEMI -Patient at time of this note was satting at 98% on 4L nasal cannula. -Vital signs are still borderline tachycardic but patient is afebrile, denies fever/chills/nausea/vomiting/diarrhea -WBC has been stable ~12-13 -CXR 09/03 with left pleural effusion, no evidence of consolidation -Continue to trend CBC and vitals Hyperglycemia in a known type II diabetic, present on admission, ongoing - Glucoses ranging in the 150-190's - HA1C 9.7 - Hold oral anti-hyperglycemics - Increase low dose to medium dose correctional scale - addition of long acting insulin with elevation of glucose Prolactinoma, presumed stable, - Patient states he has had a prolactinoma for the past 10 years - On Cabergoline 0.5mg daily Hypertension - Continue amlodipine 10 mg daily - Continue losartan 50mg daily - Start carvedilol 6.125mg daily - We will continue to monitor blood pressures Hypothyroidism -Continue medication levothyroxine 12.5 micrograms Disposition: Patient will likely be admitted for the next 2-3 days, depending on his response to his upcoming catheterization procedure. CODE STATUS: Full code PCP: Dr. Bruce Traveling Sales Representative Dr. Sandoval DVT PE prophylaxis: SCD's/SubQ heparin Q8H Contact: Jemma [phone] Pain Evaluation: Adequate Pain Control VTE Prophylaxis: Sub-Q Heparin (Unfractionated), SCDs Resuscitation Status: CPR: Attempt Resuscitation Attending Statement The patient was seen and examined together with Dr. Quigley on 09/03/2016 and I agree with the history, exam and plan as outlined in the note above. . Koko Quigley DO Sep 03, 2016 16:30 Miguel Gordon MD Sep 03, 2016 20:20
--- NOTE | 2016-09-03 16:58 | NUR ---
Respiratory Pt was on 4.5L O2 NC upon arrival satting 95%. Weaned down to 4L, still satting at 95%. Weaned down to 3L and pt still satting 95%. Pt stated minimal SOB that has been his baseline for the past 2 days. Pt states he does yoga normally so he knows what it feels like to take a deep breath and he knows he isn't doing it. Pt does not usually use O2 at home. Pt will be NPO after midnight for procedure tomorrow.
[2016-09-03] MEDS ORDERED: Glucose 40% Oral Gel 15 Gm Tube PO PRN (17:00)
[2016-09-03] MEDS ORDERED: Dextrose 10% 250 ML IV PRN (17:00)
[2016-09-04] VITALS (17 sets, daily range): BP systolic 98–130; BP diastolic 62–83; PULSE 88–100; RESP 18–26; O2SAT 92–96
[2016-09-04] MEDS: Heparin 5,000 Unit/mL Inj SUBQ SCH ×4 (01:04→23:18)
[2016-09-04 06:16] LABS: BASOPHILS % (AUTO) 0.2 % (0-3); EOSINOPHILS % (AUTO) 3.4 % (0-5); MONOCYTES % (AUTO) 11.1 % (4-12); Mean Corpuscular Hemoglobin 28.5 pg (27.0-35.0); Mean Corpuscular Volume 85.3 fL (81-100); NEUTROPHILS % (AUTO) 73.5 % (40-74); Platelet Count 336 bil/L (150-400)
[2016-09-04 06:50] LABS: Magnesium 2.4 mg/dL (1.6-2.6)
--- NOTE | 2016-09-04 06:54 | NUR ---
Cardiac/O2 Tele SR w/ rate mostly 90s-100s, denied chest pain overnight, verbalized understanding to inform nursing of any chest pain. Overall stated he slept well last night. This morning stated some abdominal bloating which is much improved from a couple days ago. BP stable. Sats right around 92% while pt slept on 3L NC, so was turned up to 4L later in night. Addendum: 09/04/16 at 0730 by JOSE KEATING RN Pt NPO after MN pending cath procedure.
[2016-09-04] MEDS: Insulin LISPRO 300 Unit/3 mL Inj SUBQ SCH ×4 (07:57→22:00)
--- NOTE | 2016-09-04 14:14 | PCM.PNMED ---
Subjective Date of Service Sep 04, 2016 Subjective Overnight there were no acute events. This morning, Mr. Skinner reports feeling that he can breathe better than yesterday and attributes it to the Lasix. He denies any episodes of chest pain, shortness of breath, abdominal pain, nausea or vomiting. Exam Vital Signs Vital Sign - Last Date Time Temp Pulse Resp B/P Pulse Ox O2 Delivery O2 Flow Rate FiO2 09/04/16 08:37 36.7 95 18 114/81 94 Nasal Cannula 2.00 Intake and Output 09/03/16 09/03/16 09/04/16 Cumulative From/Thru 15:00 23:00 07:00 09/02/16 00:36 - 09/04/16 05:44 Intake Total 200 ml 700 ml 0 ml 1652 ml Output Total 375 ml 900 ml 1275 ml Balance 200 ml 325 ml -900 ml 377 ml Intake Oral 200 ml 700 ml 0 ml 1100 ml IV Total 552 ml Output Urine Total 375 ml 900 ml 1275 ml # Voids 2 3 1 6 # Bowel Movements 1 0 1 Exam General: Elderly sitting upright watching TV in NAD HEENT: NCAT, PERRLA, EOMI, membranes pink and moist Neck: Soft with full ROM, no JVD, no thyromegaly Lungs: CTA bilaterally, no wheezes/rales/rhonchi Heart: RRR, normal S1-S2 present, no murmur/rub/click Abd: Soft, nontender, nondistended. Bowel sounds present, tympanic on percussion. No guarding. Genitourinary: No CVA tenderness, no suprapubic tenderness, no Mays catheter, Extremities: Right lower extremity groin with bandage from recent PCI, no clubbing/cyanosis/edema Neurologic: CN 2-12 intact, muscle strength normal in all extremities. No focal deficits. Skin: Warm, dry Psychiatric normal mood and affect IVs and Medications Medications Reviewed: Medications were reviewed in detail Lab and Diagnostics Result Diagram: 09/04/16 0532 09/04/16 0532 Microbiology MRSA negative X-Rays, CTs and MRIs CXR 09/02 IMPRESSION: Diffuse interstitial pulmonary edema, consistent with evolving congestive heart failure. Dictated by: Anderson Costa M.D. on 09/02/2016 at 7:57 Approved by: Anderson Costa M.D. on 09/02/2016 at 7:58 Abd US 09/02 IMPRESSION: 1. Borderline hepatomegaly without splenomegaly. Probable hepatic steatosis but nonspecific. 2. Normal gallbladder and bile ducts. 3. No hydronephrosis. Possibility of small nonobstructing renal calculi not excluded. 4. No ascites. Small bilateral pleural effusions incidentally noted. Dictated by: Kai Echols M.D. on 09/02/2016 at 8:56 Approved by: Kai Echols M.D. on 09/02/2016 at 9:02 Cardiac Echo Impressions Echo 09/03/2016 Left ventricular size is at the upper limits of normal but is unchanged compared to the previous study. Left ventricular systolic function is severely reduced with the ejection fraction estimated to be 15-20% which is markedly worse compared to the prior exam, now with akinesis of of the entire septum and majority of the anterior wall, extending to and including the distal periapical segments. The inferior wall has severe hypokinesis to akinesis. The posterolateral wall has fairly norml contractility. These wall motion abnormalities are new compared to the previous study. The E/A wave ratio > 2.0 could be indicative of increased preload and is significantly higher compared to the previous study. Assessment & Plan 56 y/o male with a hx of insulin dependent DM type II who presented to the ED complaining of substernal chest pain scribed as a pressure and bandlike sensation around his chest with 7 out of 10 chest pain onset approximately 11: 30 Friday night 09/01/2016, the pain occurred while he was exerting himself walking. The pain radiates to his left arm, and is associated with diaphoresis , shortness of breath, and abdominal pain. The pt has been having chest pain for 2 weeks but it got significantly worse today. The pain is exacerbated with deep breathing. The patient describes his abdominal pain as, "some sort of blockage in the abdomen". He states that he has taken laxatives and done enemas and has passed a bowel movement but without relief of his abdominal discomfort and distention. He denies using Aspirin or other blood thinners. He states his blood glucose at home was 172, in the ED, it is recorded at 157. Chest pain due to NSTEMI, present on admission. Resolved. - Pt presented with chest pain, EKG severe ST segment elevation in leads V1 to V5 and ST segment depression in lead 6 - Troponin 3.94, CK-MB 289 on admission - Pt taken to prosthetic lab technician with Dr. Barker on 09/02: 1. Diffuse atherosclerotic plaque throughout, typical of diabetes. 2. Critical 98% stenosis of the proximal left anterior descending artery and this was successfully treated with two drug-eluting stents. 3. Critical 99% stenosis of the mid right coronary artery with ROBERT-1 flow with faint left to right collaterals. 4. Left ventricular ejection fraction 15%. 5. LVEDP is 34 mmHg. - Echo 09/03/16 as above -Continue pain control with morphine -Continue daily aspirin 325 mg, plavix 75mg -Hold amlodipine, losartan per Cardiology recommendations -Start carvedilol 6.125 mg daily - Atorvastatin to 80mg daily -Continuous cardiac monitoring/blood pressure monitoring -Lipid panel reveals LDL 145.6, ratio 7.5 -Heart healthy diabetic diet - LifeVest, CHF clinic per Dr. Ziegler of Cardiology -Patient taken to prosthetic lab technician for RCA and possible circumflex intervention 09/04 Acute abdominal pain, and distention, present on admission. Resolved. - LFT's continue to trend down -Abdominal exam still benign, non-distended, non-tender -Cholecystitis vs ileus vs SBO, no history of prior surgeries. -Lactic acid 1.3 -Abd US as above -Lactulose given x2 with bowel relief Acute leukocytosis with left shift, as on admission, active -Likely secondary to STEMI -Patient at time of this note was satting at 98% on 4L nasal cannula. -Vital signs are still borderline tachycardic but patient is afebrile, denies fever/chills/nausea/vomiting/diarrhea -WBC has been stable ~12-13 -CXR 09/03 with left pleural effusion, no evidence of consolidation -Continue to trend CBC and vitals Hyperglycemia in a known type II diabetic, present on admission, ongoing - Glucoses ranging in the 120-100's - HA1C 9.7 - Hold oral anti-hyperglycemics - Increase low dose to medium dose correctional scale - Patient is NPO for cath procedure, will consider long acting insulin when he starts eating again Prolactinoma, presumed stable. - Patient states he has had a prolactinoma for the past 10 years - On Cabergoline 0.5mg daily Hypertension - Continue amlodipine 10 mg daily - Continue losartan 50mg daily - Start carvedilol 6.125mg daily - Continue to monitor blood pressures Hypothyroidism -Continue medication levothyroxine 12.5 micrograms Disposition: Patient will likely be admitted for the next 2-3 days, depending on his response to his upcoming catheterization procedure. CODE STATUS: Full code PCP: Dr. Bruce Bottom Man Dr. Sandoval DVT PE prophylaxis: SCD's/SubQ heparin Q8H Contact: Jemma [phone] Pain Evaluation: Adequate Pain Control VTE Prophylaxis: Sub-Q Heparin (Unfractionated), SCDs Resuscitation Status: CPR: Attempt Resuscitation Attending Statement The patient was seen and examined together with Dr. Quigley on 09/04/2016 and I agree with the history, exam and plan as outlined in the note above. . Koko Quigley DO Sep 04, 2016 09:52 Miguel Gordon MD Sep 05, 2016 17:56
[2016-09-04] MEDS ORDERED: Heparin 1,000 Units/500 mL NS Premix IV ONE (15:05)
[2016-09-04] MEDS ORDERED: Heparin 10,000 Unit/1,000 mL NS Premix IV ONE (15:05)
[2016-09-04] MEDS ORDERED: Nitroglycerin 50,000 mcg/250 mL D5W Premix IV ONE (15:16)
[2016-09-04] MEDS ORDERED: Heparin 1,000 Unit/mL 10 mL Inj ONE (15:33)
[2016-09-04] MEDS ORDERED: fentaNYL-PF 50 mCg/mL 2 mL Inj ONE (15:33)
--- NOTE | 2016-09-04 15:36 | NUR ---
BP/CBG/Cath Pt has been NPO since midnight. Took all AM meds. BP in the AM: 114/81. BP at 1200 was 98/62. Pt asymptomatic. notified. Around 1400 pt began feeling light headed. BP 112/81. MD ordered to start NS @100/hr. Fluids hung. Pt reported feeling better. CBGs today were 133, 102, and 95. Pt was 95 around the time he was feeling light-headed. also notified of this. Pt was hibicleansed for pre cath procedure. 2 IVs patent. Pt recently voided. Consent form signed. Pt was picked up around 1445 for oven laborer.
[2016-09-04] MEDS ORDERED: 0.9% Sodium Chloride 50 ML ONE (15:50)
[2016-09-04] MEDS ORDERED: Adenosine Inj 20 ML IV ONE (15:50)
[2016-09-04] MEDS ORDERED: Protamine Sulfate 10 mg/mL 5 mL Inj ONE (16:08)
--- NOTE | 2016-09-04 17:30 | DI95 ---
[address] [address] INTERVENTIONAL CARDIAC CATHETERIZATION PATIENT: KRISS CASTRO : 1960 MR#: [id number] ADMIT: 09/02/2016 JOB ID: [id number] PATIENT PROFILE: The patient is a 56-year-old male who suffered acute anterior myocardial infarction two days ago. He underwent emergent stent placement to the proximal left anterior descending. He was found at that time to have subtotal occlusion of the mid right coronary artery and moderate to severe stenosis of the mid circumflex artery. PROCEDURE: 1. Unsuccessful attempt at angioplasty to the occluded mid right coronary artery. 2. FFR of the mid circumflex artery. VASCULAR CLOSURE DEVICE: Perclose. COMPLICATION: None. METHOD: Vascular access was obtained from the right groin under 1% lidocaine local anesthesia using a 6-Armenian sheath. Heparin 7,000 units was given. A 6-Armenian AR1 guide was advanced to the right coronary ostium. A Runthrough wire was used to cross the occluded mid right coronary artery. This was attempted with the 2.0 mm balloon backup support, however this wire could not cross the lesion. The attention was then turned to the circumflex artery. A 6-Armenian CLS 3.5 guide was advanced to the left coronary ostium. A flow wire was placed inside the circumflex artery. Adenosine was given infusion IV. FFR was measured. The procedure was terminated. Right femoral angiogram was performed. Following sheath removal, hemostasis was achieved by using a Perclose device. The patient tolerated the procedure well. The patient was transferred to [facility] in good condition. TOTAL CONTRAST USED: 50 mL. FLUOROSCOPY TIME: 4.2 minutes. RESULTS: 1. 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 2. FFR of the mid circumflex artery is 0.90, which indicates nonhemodynamic significant stenosis. MTDD
--- NOTE | 2016-09-04 19:21 | NUR ---
DULCE Patient to DULCE at 1640 from labor mediator. No intervention. No family at bedside. Care assumed from TAYLOR RN at 1700. Patient denies pain except when palpating groin. Small knot noted at right groin possibly from closure device remains unchanged. Pedal pulses present. Patient sleeping but wakes easily to voice. Transferred back to room 2027 at 1900. Report to receiving RN.
[2016-09-05] VITALS (8 sets, daily range): BP systolic 114–138; BP diastolic 78–93; PULSE 84–98; RESP 16–22; O2SAT 94–97
[2016-09-05 05:44] LABS: BASOPHILS % (AUTO) 0.1 % (0-3); Mean Corpuscular Hemoglobin 28.5 pg (27.0-35.0); Mean Corpuscular Volume 85.4 fL (81-100); NEUTROPHILS % (AUTO) 69.2 % (40-74); Platelet Count 376 bil/L (150-400)
--- NOTE | 2016-09-05 08:16 | NUR ---
Groin/Cardiac Right groin with small knot, consistent w/ DULCE report and assessment at bedside, no change until after pt got up from bedrest. Small area of hardness noted, maybe quarter sized, charge master specialist Anusha applied pressure, area soft after that, pt remained in bed for a few hours sleeping. Pedal pulse palpable, no pain other than when palpated, Tylenol given. This morning pt up to chair for a while and when reassessed had small area of hardness again, pressure applied until soft, reassessed w/ day RN at shift change, small dime sized knot noted. Day RN aware. No chest pain overnight, tele SR 80s-100s, pt on 2-3 L O2.
[2016-09-05] MEDS ORDERED: CABERGOLINE 0.5 MG PO SCH (08:30)
[2016-09-05] MEDS: Heparin 5,000 Unit/mL Inj SUBQ SCH ×2 (08:35→17:11)
[2016-09-05] MEDS: Insulin LISPRO 300 Unit/3 mL Inj SUBQ SCH ×4 (08:36→22:00)
[2016-09-05] MEDS ORDERED: Furosemide 10 mg/mL 2 mL Inj IVPUSH ONE (10:30)
--- NOTE | 2016-09-05 11:19 | PROG NOTE ---
[address] [address] PROGRESS NOTE PATIENT: KRISS CASTRO : 1960 MR#: [id number] ADMIT: 09/02/2016 JOB ID: [id number] DATE: 09/05/2016 CARDIOLOGY PROGRESS NOTE: The patient underwent repeat angiography by Dr. 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 Therefore, there was no revascularization performed. Fractional flow reserve assessment of the left circumflex artery suggested that it was not hemodynamically significant. Since then, he has done relatively well although continues to complain of mild dyspnea, particularly while supine that he attributes to abdominal "bloating." He has had no anginal discomfort and denies any lightheadedness. He has not ambulated much and remains on oxygen. PHYSICAL EXAMINATION: HR 100. BP 130/75. O2 saturation 92% on 4 L of nasal cannula. He had a negative fluid balance yesterday of around 1000 but is up around 300 mL so far today and his weight is steady but up 1.8 kg from admission. Lungs: Dullness at both bases but without any appreciable rales. CV : Somewhat distant heart tones with a regular rhythm without any appreciable murmurs or gallops. JVP is likely 8-9 cm. Abdomen: Mildly distended and nontender. Normal bowel tones are present. Extremities: Warm without any significant edema. LABORATORY: Potassium this morning is 5.0 with a sodium of 136, up from 133. BUN is 21 with a creatinine of 0.7. Glucose 141. Magnesium is 2.4. LFTs continued to improve. His peak CK was 4841 with an MB of 470. His LDL was 146. Chest x-ray: From 09/03 showed bilateral pleural effusions with some mild interstitial opacities consistent with probable fluid accumulation. ECG: His ECG from yesterday showed sinus rhythm with probable left atrial enlargement. He has a nonspecific conduction delay with extensive anterolateral Q-waves. His ST elevation is less prominent. IMPRESSION: 1. Extensive anterior myocardial infarction with resultant cardiomyopathy. While he appears quite comfortable, he appears to be volume overloaded, and before discharge, I think we need to achieve a better fluid status. I will give him a dose of IV furosemide 20 mg currently. I suspect that he will require chronic diuretic therapy to maintain an adequate fluid balance. I will also reinstitute his losartan at a low dose for afterload reduction, but with close observation of his electrolytes and renal function. Given his borderline tachycardia, I will also increase his carvedilol slightly from 3.125 mg b.i.d. to 6.25 mg b.i.d. If he decompensates nicely with this, then I suspect that he can be discharged tomorrow although he may require an additional day of diuresis depending upon his response to above. I had a fairly extended discussion with him in regards to his current cardiac status and prognosis. I suspect that he will have a long-term ischemic cardiomyopathy but will require a viability test and reassessment of LV systolic function in several months to establish this. If the inferior wall appears to have some viability, then more aggressive attempts at revascularization of the RCA could be considered although I think would be technically challenging. In the meantime, I think he is at fairly high risk for malignant cardiac arrhythmias and again have encouraged him to wear a cardiac Life Vest although he is somewhat reluctant but eventually acquiesces. I will put in an order for followup with Dr. Valadez in several months in anticipation that his LV systolic function will not adequately improve and that he will remain a candidate for ICD interrogation. In the meantime, I will have him followup with Dr. Sandoval who he has seen in the outpatient in the past for followup with close observation of electrolytes and renal function. If his potassium balance remains adequate, then spironolactone could also be considered to his regimen. In the meantime, I will refer him to cardiac rehabilitation and I think he would be a good candidate for the heart failure clinic. 2. Diabetes. Marginally controlled but should be optimized. 3. Hyperlipidemia. His atorvastatin has been increased to 80 mg but a lipid panel should be rechecked in several months with consideration for changing to rosuvastatin or Repatha. 4. Hypothyroidism. On thyroid replacement therapy. PLAN: 1. A single dose of IV furosemide 20 mg currently with subsequent doses depending upon response with probable ongoing p.o. furosemide depending upon his volume status. 2. Reinstitute losartan 12.5 mg daily and increase his carvedilol from 3.125 mg b.i.d. to 6.25 mg b.i.d. 3. Continue to assess heart rate and rhythm. 4. He should ambulate off of oxygen before he is discharged. Once he is on a stable oral regimen and is relatively euvolemic, he can be discharged with referral to outpatient cardiac rehabilitation as well as the CHF Clinic. He should have a BMP in one week to ensure the adequate potassium balance. He should followup with Dr. Sandoval or his engineer first assistant in 2-3 weeks with anticipation of obtaining a viability study and repeat assessment of left ventricular systolic function in several months with consultation with Dr. Valadez at that time if his LV systolic function remains significantly depressed. Dr. Dodd will be taking over the service tomorrow. I will have him check with the hospitalist as to whether the patient needs to be continued to be followed by cardiology or can be discharged. I spent 55 minutes reviewing the patient's medical record including his cardiac catheterization films, having extended discussions with him in regard to his prognosis and documenting such.
[2016-09-05] MEDS: Lactulose 20 Gm/30 mL 30 mL Syrup PO PRN (11:30)
--- NOTE | 2016-09-05 15:51 | PCM.PNMED ---
Subjective Date of Service Sep 05, 2016 Subjective Overnight there were no acute events. This morning, Mr. Skinner reports slight shortness of breath but is otherwise feeling better and has an appetite. He denies any chest pain, orthopnea, groin site bleeding, palpitations or dizziness/lightheadedness. He does have a multitude of questions about his LifeVest evaluation. Exam Vital Signs Vital Sign - Last Date Time Temp Pulse Resp B/P Pulse Ox O2 Delivery O2 Flow Rate FiO2 09/05/16 12:08 36.6 97 18 138/93 94 Nasal Cannula 3.00 Intake and Output 09/04/16 09/04/16 09/05/16 Cumulative From/Thru 15:00 23:00 07:00 09/02/16 00:36 - 09/05/16 05:23 Intake Total 600 ml 2252 ml Output Total 100 ml 550 ml 1925 ml Balance -100 ml 50 ml 327 ml Intake Oral 600 ml 1700 ml IV Total 552 ml Output Urine Total 100 ml 550 ml 1925 ml # Voids 6 # Bowel Movements 0 1 Exam General: Elderly sitting upright on oxygen, eating breakfast HEENT: NCAT, PERRLA, EOMI, membranes pink and moist Neck: Soft with full ROM, mild JVD, no thyromegaly Lungs: CTA bilaterally, no wheezes/rales/rhonchi Heart: RRR, normal S1-S2 present, no murmur/rub/click Abd: Soft, nontender, nondistended. Bowel sounds present, tympanic on percussion. No guarding. Genitourinary: No CVA tenderness, no suprapubic tenderness, no Mays catheter, Extremities: No clubbing/cyanosis/edema Neurologic: CN 2-12 intact, muscle strength normal in all extremities. No focal deficits. Skin: Warm, dry Psychiatric normal mood and affect IVs and Medications Medications Reviewed: Medications were reviewed in detail Lab and Diagnostics Result Diagram: 09/05/1651409/05/16514 Microbiology MRSA negative X-Rays, CTs and MRIs CXR 09/02 IMPRESSION: Diffuse interstitial pulmonary edema, consistent with evolving congestive heart failure. Dictated by: Anderson Costa M.D. on 09/02/2016 at 7:57 Approved by: Anderson Costa M.D. on 09/02/2016 at 7:58 Abd 09/02 IMPRESSION: 1. Borderline hepatomegaly without splenomegaly. Probable hepatic steatosis but nonspecific. 2. Normal gallbladder and bile ducts. 3. No hydronephrosis. Possibility of small nonobstructing renal calculi not excluded. 4. No ascites. Small bilateral pleural effusions incidentally noted. Dictated by: Kai Echols M.D. on 09/02/2016 at 8:56 Approved by: Kai Echols M.D. on 09/02/2016 at 9:02 Cardiac Echo Impressions Echo 09/03/2016 Left ventricular size is at the upper limits of normal but is unchanged compared to the previous study. Left ventricular systolic function is severely reduced with the ejection fraction estimated to be 15-20% which is markedly worse compared to the prior exam, now with akinesis of of the entire septum and majority of the anterior wall, extending to and including the distal periapical segments. The inferior wall has severe hypokinesis to akinesis. The posterolateral wall has fairly norml contractility. These wall motion abnormalities are new compared to the previous study. The E/A wave ratio > 2.0 could be indicative of increased preload and is significantly higher compared to the previous study. Assessment & Plan 56 y/o male with a hx of insulin dependent DM type II who presented to the ED complaining of substernal chest pain scribed as a pressure and bandlike sensation around his chest with 7 out of 10 chest pain onset approximately 11: 30 Friday night 09/01/2016, the pain occurred while he was exerting himself walking. The pain radiates to his left arm, and is associated with diaphoresis , shortness of breath, and abdominal pain. The pt has been having chest pain for 2 weeks but it got significantly worse today. The pain is exacerbated with deep breathing. The patient describes his abdominal pain as, "some sort of blockage in the abdomen". He states that he has taken laxatives and done enemas and has passed a bowel movement but without relief of his abdominal discomfort and distention. He denies using Aspirin or other blood thinners. He states his blood glucose at home was 172, in the ED, it is recorded at 157. Chest pain due to NSTEMI, present on admission. Resolved. - Patient presented with chest pain, EKG severe ST segment elevation in leads V1 to V5 and ST segment depression in lead 6 - Troponin 3.94, CK-MB 289 on admission - Patient taken to laborer construction or leak gang with Dr. Barker on 09/02, 2 stents placed in proximal LAD - Patient taken to laborer construction or leak gang again with Dr. Barker on 09/04, no intervention possible for RCA - Echo 09/03/16 as above -Continue daily aspirin 325 mg, plavix 75mg - Dr. Rodríguez of Cardiology recommends: 20mg IV Lasix with ongoing doses depending on response Restart Losartan 12.5mg daily Increase Carvedilol from 3.125mg twice daily to 6.25mg twice daily - Continue Atorvastatin to 80mg daily - Continue Heart healthy diabetic diet; carbs limited to 45mg - LifeVest, CHF clinic as outpatient - Schedule follow up with Dr. Sandoval in 2-3 weeks for viability study - Schedule follow up Dr. Valadez in 2-3 months for ICD evaluation Acute abdominal pain, and distention, present on admission. Resolved. - LFT's largely normalized -Abdominal exam still benign, non-distended, non-tender -Lactic acid 1.3 -Abd US as above Acute leukocytosis with left shift, as on admission. Resolved. -Likely secondary to STEMI -Patient at time of this note was satting at 92% on 4L nasal cannula. -Vital signs are still borderline tachycardic but patient is afebrile, denies fever/chills/nausea/vomiting/diarrhea -WBC stable within normal limits for 48 hours -CXR scheduled for 09/06 to assess Hyperglycemia in a known type II diabetic, present on admission, ongoing - Glucoses ranging in the 120-100's - HA1C 9.7 - Hold oral anti-hyperglycemics - Medium correctional scale, diet as above - Now that patient is not intermittently NPO, will evaluate insulin need and get a better outpatient regimen Prolactinoma, presumed stable. - Patient states he has had a prolactinoma for the past 10 years - On Cabergoline 0.5mg daily Hypertension - Medications as above per Dr. Rodríguez - Continue to monitor blood pressures Hypothyroidism -Continue medication levothyroxine 12.5 micrograms Disposition: Patient will likely be admitted for the next 1-2 days, depending on his response to diuresis and continued stability. CODE STATUS: Full code PCP: Dr. [facility] Dr. Sandoval DVT PE prophylaxis: SCD's/SubQ heparin Q8H Contact: Jemma [phone] Pain Evaluation: Adequate Pain Control VTE Prophylaxis: Sub-Q Heparin (Unfractionated), SCDs Resuscitation Status: CPR: Attempt Resuscitation Attending Statement The patient was seen and examined together with Dr. Quigley on 09/05/2016 and I agree with the history, exam and plan as outlined in the note above. . Koko Quigley DO Sep 05, 2016 13:35 Miguel Gordon MD Sep 05, 2016 17:57
--- NOTE | 2016-09-05 16:35 | NUR ---
GI Pt requested PRN lactulose to have a BM. Pt has not had BM yet. Offered Miralax and prune juice. Pt requested to try later. Will continue to monitor.
[2016-09-06] VITALS (9 sets, daily range): BP systolic 90–117; BP diastolic 55–82; PULSE 81–98; RESP 16–20; O2SAT 91–95
[2016-09-06] MEDS: Heparin 5,000 Unit/mL Inj SUBQ SCH ×3 (02:19→16:19)
[2016-09-06 04:33] LABS: Magnesium 2.2 mg/dL (1.6-2.6)
--- NOTE | 2016-09-06 07:55 | NUR ---
GI/SOB Pt overall appeared to sleep well overnight and stated that he did sleep well. Early this morning pt felt some anxiety associated w/ SOB and stomach bloating/constipation. Pt had prune juice and able to have small bowel movement, states he still feels constipated but preferred to wait on bowel med at the moment. Pt had some decreased lung sounds but otherwise moving good air and sats maintaining 94%. O2 turned up to 4.5 L and pt stated this was helpful, stated no more anxiety. Pt denied any pain. Tele SR 80s-90s overnight. Ongoing care.
[2016-09-06] MEDS: Insulin LISPRO 300 Unit/3 mL Inj SUBQ SCH ×4 (09:22→22:00)
[2016-09-06] MEDS ORDERED: Furosemide 10 mg/mL 2 mL Inj IVPUSH ONE ×2 (09:35→15:20)
--- NOTE | 2016-09-06 11:12 | PCM.PNMED ---
Subjective Date of Service Sep 06, 2016 Subjective Overnight the patient had trouble breathing and had to sit upright in order to calm down enough to fall back asleep. He says he felt better after the Lasix yesterday but is still not at 100% of his breathing capacity. Other than the shortness of breath, he denies any chest pain, palpitations, dizziness or lightheadedness. Exam Vital Signs Vital Sign - Last Date Time Temp Pulse Resp B/P Pulse Ox O2 Delivery O2 Flow Rate FiO2 09/06/16 09:12 36.2 90 16 117/82 95 Nasal Cannula 4.50 Intake and Output 09/05/16 09/05/16 09/06/16 Cumulative From/Thru 15:00 23:00 07:00 09/02/16 00:36 - 09/06/16 05:21 Intake Total 253 ml 1200 ml 636 ml 4341 ml Output Total 1000 ml 425 ml 3350 ml Balance 253 ml 200 ml 211 ml 991 ml Intake Oral 1200 ml 636 ml 3536 ml IV Total 253 ml 0 ml 805 ml Output Urine Total 1000 ml 425 ml 3350 ml # Voids 6 # Bowel Movements 1 2 Exam General: Elderly sitting upright on oxygen, eating breakfast HEENT: NCAT, PERRLA, EOMI, membranes pink and moist Neck: Soft with full ROM, mild JVD, no thyromegaly Lungs: CTA bilaterally, no wheezes/rales/rhonchi Heart: RRR, normal S1-S2 present, no murmur/rub/click Abd: Soft, nontender, nondistended. Bowel sounds present, tympanic on percussion. No guarding. Extremities: No clubbing/cyanosis/edema Neurologic: CN 2-12 intact, muscle strength normal in all extremities. No focal deficits. Skin: Warm, dry Psychiatric normal mood and affect IVs and Medications Medications Reviewed: Medications were reviewed in detail Lab and Diagnostics Result Diagram: 09/05/16 0515 09/06/16 0345 Microbiology MRSA negative X-Rays, CTs and MRIs CXR 09/02 IMPRESSION: Diffuse interstitial pulmonary edema, consistent with evolving congestive heart failure. Dictated by: Anderson Costa M.D. on 09/02/2016 at 7:57 Approved by: Anderson Costa M.D. on 09/02/2016 at 7:58 Abd US 09/02 IMPRESSION: 1. Borderline hepatomegaly without splenomegaly. Probable hepatic steatosis but nonspecific. 2. Normal gallbladder and bile ducts. 3. No hydronephrosis. Possibility of small nonobstructing renal calculi not excluded. 4. No ascites. Small bilateral pleural effusions incidentally noted. Dictated by: Kai Echols M.D. on 09/02/2016 at 8:56 Approved by: Kai Echols M.D. on 09/02/2016 at 9:02 Cardiac Echo Impressions Echo 09/03/2016 Left ventricular size is at the upper limits of normal but is unchanged compared to the previous study. Left ventricular systolic function is severely reduced with the ejection fraction estimated to be 15-20% which is markedly worse compared to the prior exam, now with akinesis of of the entire septum and majority of the anterior wall, extending to and including the distal periapical segments. The inferior wall has severe hypokinesis to akinesis. The posterolateral wall has fairly norml contractility. These wall motion abnormalities are new compared to the previous study. The E/A wave ratio > 2.0 could be indicative of increased preload and is significantly higher compared to the previous study. Assessment & Plan 56 y/o male with a hx of insulin dependent DM type II who presented to the ED complaining of substernal chest pain scribed as a pressure and bandlike sensation around his chest with 7 out of 10 chest pain onset approximately 11: 30 Friday night 09/01/2016, the pain occurred while he was exerting himself walking. The pain radiates to his left arm, and is associated with diaphoresis , shortness of breath, and abdominal pain. The pt has been having chest pain for 2 weeks but it got significantly worse today. The pain is exacerbated with deep breathing. The patient describes his abdominal pain as, "some sort of blockage in the abdomen". He states that he has taken laxatives and done enemas and has passed a bowel movement but without relief of his abdominal discomfort and distention. He denies using Aspirin or other blood thinners. He states his blood glucose at home was 172, in the ED, it is recorded at 157. Chest pain due to NSTEMI, present on admission. Resolved. - Patient taken to cathead operator with Dr. Barker on 09/02, 2 stents placed in proximal LAD - Patient taken to cathead operator again with Dr. Barker on 09/04, no intervention possible for RCA - Echo 09/03/16 as above -Continue daily aspirin 325 mg, plavix 75mg - Continue Atorvastatin to 80mg daily - Continue Heart healthy diabetic diet; carbs limited to 45mg - LifeVest, CHF clinic as outpatient - Decreased Carvedilol to 3.125 mg daily as his blood pressure declined - Lasix IV 20mg once today, track blood pressure response for further doses - Schedule follow up with Dr. Sandoval in 2-3 weeks for viability study - Schedule follow up Dr. Valadez in 2-3 months for ICD evaluation Acute abdominal pain, and distention, present on admission. Resolved. - LFT's largely normalized -Abdominal exam still benign, non-distended, non-tender -Lactic acid 1.3 -Abd US as above Acute leukocytosis with left shift, as on admission. Resolved. -Likely secondary to STEMI. -Vital signs stable, patient remains afebrile, denies fever/chills/nausea/ vomiting/diarrhea -WBC stable within normal limits for 48 hours -CXR to assess effusion status, read pending Hyperglycemia in a known type II diabetic, present on admission, ongoing - HA1C 9.7 - Patient unable to tolerate metformin - Glucoses were stable but now that patient is eating I will restart his home regimen - Home coverage is 40-45 units of Lantus at night; will start with 35 and titrate up - Medium correctional scale, diet as above Prolactinoma, presumed stable. - Patient states he has had a prolactinoma for the past 10 years - On Cabergoline 0.5mg daily Hypertension - Carvedilol decreased to 3.125 twice daily - Continue to monitor blood pressures Hypothyroidism -Continue medication levothyroxine 12.5 micrograms Disposition: Patient will likely be admitted for the next 1-2 days, depending on his response to diuresis and continued stability. CODE STATUS: Full code PCP: Dr. Bruce Cutlery Grinder Dr. Sandoval DVT PE prophylaxis: SCD's/SubQ heparin Q8H Contact: Jemma [phone] Pain Evaluation: Adequate Pain Control VTE Prophylaxis: Sub-Q Heparin (Unfractionated), SCDs Resuscitation Status: CPR: Attempt Resuscitation Attending Statement The patient was seen and examined together with Dr. Quigley on 09/06/2016 and I agree with the history, exam and plan as outlined in the note above. . Koko Quigley DO Sep 06, 2016 11:12 Miguel Gordon MD Sep 08, 2016 15:54
--- NOTE | 2016-09-06 11:49 | DRSVH ---
PROCEDURE: X-RAY CHEST ONE VIEW ([id number]) INDICATIONS: shortness of breath TECHNIQUE: One view of the chest was acquired. COMPARISON: [facility], CR, XR CHEST 1VW (PORTABLE), 09/03/2016, 8:13. FINDINGS: Surgical changes and devices: None. Lungs and pleura: Diffuse, widespread bilateral pulmonary interstitial and air space opacities are p resent similar to prior examination. Small left pleural effusion. Mediastinum: Mediastinal contours appear normal. Heart size is normal. Bones and chest wall: No suspicious bony lesions. Overlying soft tissues appear unremarkable. IMPRESSION: Pulmonary edema and/or diffuse bilateral pneumonia similar to prior examination and small left pleural effusion redemonstrated. Dictated by: Raghav Cooper RRA Interpreted: Doris Stevens MD on 09/06/2016 at 10:00 Approved by: Doris Stevens M.D. on 09/06/2016 at 11:47
--- NOTE | 2016-09-06 16:14 | NUR ---
Social Work: Multidisciplinary Rounds Pt discussed in am rounds. Pt is not medically stable for discharge. Pt sw status remains unchanged and anticipate d/c plan to go home when medically stable. No social work needs at this time and team expresses no concerns for capacity for selfcare. KID CLUB ATTENDANT will not see the patient today due to high census HERI Urbina
--- NOTE | 2016-09-06 18:30 | NUR ---
Ambulation/Diuresis. Cardiac: Pt denies CP, Tele: SR 80-90 Resp: Pt denies SOB, SPO2 95% on 4.5L NC. Titrated down to 3L and then 2. Pt tolerated well, SPO2 remains 94%. Pt reports he feels much better today and has not had SOB like last night. Pt still has crackles in bases, lasix given twice today. Pt ambulating in halls today. SPO2 down to 88% on RA when walking, up to 92% on 2L. GI/: Pt denies n/v/d, Pt reports he has had multiple small BMs today and is feeling better. Neuro: [facility]
[2016-09-06] MEDS: Insulin GLARgine 100 Unit/mL Syringe SUBQ SCH (22:24)
[2016-09-07] VITALS (8 sets, daily range): BP systolic 110–125; BP diastolic 72–83; PULSE 80–95; RESP 15–20; O2SAT 91–96
[2016-09-07] MEDS: Heparin 5,000 Unit/mL Inj SUBQ SCH ×3 (01:02→17:36)
--- NOTE | 2016-09-07 05:53 | NUR ---
Activity/Tele Patient up to ambulate in the [place] at beginning of she. States he feels much better than he did yesterday. Patient sleeping well for remainder of shift. Rouses easily for care. Denies pain. Continue to monitor.
[2016-09-07] MEDS ORDERED: Furosemide 10 mg/mL 4 mL Inj IVPUSH ONE ×2 (08:25→14:00)
[2016-09-07] MEDS: Insulin LISPRO 300 Unit/3 mL Inj SUBQ SCH ×4 (09:50→22:00)
[2016-09-07] MEDS: Polyethylene Glycol (PEG) 17 Gm Powder PO PRN (10:53)
--- NOTE | 2016-09-07 12:20 | PCM.PNMED ---
Subjective Date of Service Sep 07, 2016 Subjective Overnight there were no acute events. Mr. Skinner reports that he is able to breath better this morning and had no issues with his breathing overnight. He says he is urinating frequently but denies any chest pain, palpitations, shortness of breath, nausea/vomiting. He would like to go home today if possible. Exam Vital Signs Vital Sign - Last Date Time Temp Pulse Resp B/P Pulse Ox O2 Delivery O2 Flow Rate FiO2 09/07/16 11:49 36.7 90 20 117/79 91 Nasal Cannula 2.00 Intake and Output 09/06/16 09/06/16 09/07/16 Cumulative From/Thru 15:00 23:00 07:00 09/02/16 00:36 - 09/07/16 05:56 Intake Total 500 ml 630 ml 5471 ml Output Total 1325 ml 400 ml 5075 ml Balance -825 ml 230 ml 396 ml Intake Oral 500 ml 600 ml 4636 ml IV Total 30 ml 835 ml Output Urine Total 1325 ml 400 ml 5075 ml # Voids 1 7 # Bowel Movements 1 3 Exam General: Elderly sitting upright without oxygen HEENT: NCAT, PERRLA, EOMI, membranes pink and moist Neck: Soft with full ROM, mild JVD, no thyromegaly Lungs: CTA bilaterally, no wheezes/rales/rhonchi Heart: RRR, normal S1-S2 present, no murmur/rub/click Abd: Soft, nontender, nondistended. Bowel sounds present, tympanic on percussion. No guarding. Extremities: No clubbing/cyanosis/edema Neurologic: CN 2-12 intact, muscle strength normal in all extremities. No focal deficits. Skin: Warm, dry Psychiatric normal mood and affect IVs and Medications Medications Reviewed: Medications were reviewed in detail Lab and Diagnostics Result Diagram: 09/05/16 0515 09/07/16 0330 Microbiology MRSA negative X-Rays, CTs and MRIs CXR 09/02 IMPRESSION: Diffuse interstitial pulmonary edema, consistent with evolving congestive heart failure. Dictated by: Anderson Costa M.D. on 09/02/2016 at 7:57 Approved by: Anderson Costa M.D. on 09/02/2016 at 7:58 Abd US 09/02 IMPRESSION: 1. Borderline hepatomegaly without splenomegaly. Probable hepatic steatosis but nonspecific. 2. Normal gallbladder and bile ducts. 3. No hydronephrosis. Possibility of small nonobstructing renal calculi not excluded. 4. No ascites. Small bilateral pleural effusions incidentally noted. Dictated by: Kai Echols M.D. on 09/02/2016 at 8:56 Approved by: Kai Echols M.D. on 09/02/2016 at 9:02 Cardiac Echo Impressions Echo 09/03/2016 Left ventricular size is at the upper limits of normal but is unchanged compared to the previous study. Left ventricular systolic function is severely reduced with the ejection fraction estimated to be 15-20% which is markedly worse compared to the prior exam, now with akinesis of of the entire septum and majority of the anterior wall, extending to and including the distal periapical segments. The inferior wall has severe hypokinesis to akinesis. The posterolateral wall has fairly norml contractility. These wall motion abnormalities are new compared to the previous study. The E/A wave ratio > 2.0 could be indicative of increased preload and is significantly higher compared to the previous study. Assessment & Plan 56 y/o male with a hx of insulin dependent DM type II who presented to the ED complaining of substernal chest pain scribed as a pressure and bandlike sensation around his chest with 7 out of 10 chest pain onset approximately 11: 30 Friday night 09/01/2016, the pain occurred while he was exerting himself walking. The pain radiates to his left arm, and is associated with diaphoresis , shortness of breath, and abdominal pain. The pt has been having chest pain for 2 weeks but it got significantly worse today. The pain is exacerbated with deep breathing. The patient describes his abdominal pain as, "some sort of blockage in the abdomen". He states that he has taken laxatives and done enemas and has passed a bowel movement but without relief of his abdominal discomfort and distention. He denies using Aspirin or other blood thinners. He states his blood glucose at home was 172, in the ED, it is recorded at 157. Chest pain due to NSTEMI, present on admission. Resolved. - Patient taken to cathead operator with Dr. Barker on 09/02, 2 stents placed in proximal LAD - Patient taken to cathead operator again with Dr. Barker on 09/04, no intervention possible for RCA - Echo 09/03/16 as above -Continue daily aspirin 325mg, plavix 75mg, Atorvastatin 80mg, Carvedilol 3.125mg twice daily - LifeVest, CHF clinic as outpatient - Increased furosemide to 40mg IV to increase diuresis; will transition to PO depending on his response - Schedule follow up with Dr. Sandoval in 2-3 weeks for viability study - Schedule follow up Dr. Valadez in 2-3 months for ICD evaluation Acute abdominal pain, and distention, present on admission. Resolved. - LFT's normalized -Lactic acid 1.3 -Abd US as above Acute leukocytosis with left shift, as on admission. Resolved. -Likely secondary to STEMI. - Patient continues to have normal infectious markers, benign exam Hyperglycemia in a known type II diabetic, present on admission, Improved. - HA1C 9.7 - Patient unable to tolerate metformin - Lantus 35 units at night with BS 155 this morning - Medium correctional scale, diet as above Prolactinoma, presumed stable. - Cabergoline 0.5mg daily Hypertension - Carvedilol as above Hypothyroidism - Levothyroxine 12.5 micrograms Disposition: Patient will likely be discharged tomorrow, depending on his response to diuresis and continued clinical stability. CODE STATUS: Full code PCP: Dr. Bruce Pill Maker Dr. Sandoval DVT PE prophylaxis: SCD's/SubQ heparin Q8H Contact: Jemma [phone] ([facility]) Pain Evaluation: Adequate Pain Control VTE Prophylaxis: Sub-Q Heparin (Unfractionated), SCDs Resuscitation Status: CPR: Attempt Resuscitation Attending Statement The patient was seen and examined together with Dr. Quigley on 09/07/2016 and I agree with the history, exam and plan as outlined in the note above. . Koko Quigley DO Sep 07, 2016 12:20 Miguel Gordon MD Sep 08, 2016 15:55
--- NOTE | 2016-09-07 15:46 | NUR ---
Social Work: Readiness for Discharge/Multidisciplinary Rounds D: Pt discussed in am rounds. pt is not yet medically stable for discharge but may discharge tomorrow pending on diuresis. MD identifies no sw needs or concerns for capacity for self care. Pt has been ambulating I during admission. HOME ATTENDANT met with pt at bedside to confirm discharge plan. Pt agrees with plan to d/c home with outpatient CHF clinic follow up. He has no identified barriers or concerns. No sw needs identified at this time. A: Pt who is I at baseline. P: Anticipate pt to discharge home via POV and no sw needs; HOME ATTENDANT to continue to follow to assess for discharge needs should they arise. HERI Urbina
--- NOTE | 2016-09-07 19:01 | NUR ---
Ambulation/SPO2 Cardiac: denies chest pain. SR 80s-90s Resp: Pt denies SOB, reports that his breathing is much improved. Still some fine crackles in bases, but better than yesterday. Lasix given this AM, and again this afternoon. SPO2 96% on 1L NC this AM. O2 Dc'd, SPO2 93% on RA. Pt ambulating in halls on RA with no s/s SOB, SPO2 92% after ambulation on RA. GI/: Pt denies n/v, mirilax given at pt request for complaints of difficulty passing stool, denies cramping or bloating. Neuro: A&Ox3, HORN. Pt ambulating in halls
[2016-09-07] MEDS: Insulin GLARgine 100 Unit/mL Syringe SUBQ SCH (22:08)
[2016-09-08] MEDS: Heparin 5,000 Unit/mL Inj SUBQ SCH ×2 (01:02→08:42)
[2016-09-08 05:12] VITALS: PULSE 69
[2016-09-08 06:30] VITALS: BP 114/75; PULSE 83; RESP 18; O2SAT 94
--- NOTE | 2016-09-08 06:35 | NUR ---
Rest/Tele/Vitals Patient resting comfortably overnight. Continues to be in sinus rhythm. No chest pain or shortness of breath. Maintaining SpO2 in mid-90s overnight on room air.
[2016-09-08 07:48] VITALS: BP 112/84; PULSE 89; RESP 16; O2SAT 95
[2016-09-08] MEDS: Insulin LISPRO 300 Unit/3 mL Inj SUBQ SCH ×2 (08:00→12:59)
[2016-09-08 08:25] VITALS: PULSE 90
[2016-09-08] MEDS: Polyethylene Glycol (PEG) 17 Gm Powder PO PRN (08:42)
[2016-09-08 12:12] VITALS: BP 102/67; PULSE 75; RESP 22; O2SAT 94
--- NOTE | 2016-09-08 13:24 | PCM.DICHF ---
MORELIA GÓMEZ DO 09/08/16 1324: CHF Discharge Instructions Date of Service: Sep 08, 2016 Dates of Hospitalization Date of Hospital Admission Sep 02, 2016 at 01:25 Date of Discharge: Sep 08, 2016 Providers Admitting Physician: Dinorah Carter MD Primary Care Physician: Donnie Bruce MD Attending Physician: Dinorah Carter MD Diagnosis at Time of Discharge Diagnosis at time of discharge Chest pain due to NSTEMI Acute abdominal pain Acute leukocytosis with left shift Hyperglycemia in a known type II diabetic Prolactinoma Hypertension Hypothyroidism Problems: Labs Ejection Fraction Laboratory Tests Test Range/Units 09/02/16 00:20 09/02/16 00:50 09/02/16 03:20 09/02/16 06:00 Hemoglobin A1c 4.8-5.6 % 9.7 Lactic Acid Level 0.4-2.0 mmol/L 1.3 Thyroid Stimulating Hormone (TSH) 0.450-4.500 uIU/mL 1.780 Hold Jyo Top Tube Received Received Test Range/Units 09/02/16 14:40 09/03/16 05:00 09/06/16 03:45 09/07/16 03:30 Total Creatine Kinase 21-232 U/L 3773 Creatine Kinase MB 0.0-10.4 ng/mL 349.3 Creatine Kinase MB % 0.0-5.0 % 9.3 Troponin T 0.0-0.011 ug/L 5.3 Triglycerides Level 0-149 mg/dL 117 Cholesterol Level 100-199 mg/dL 195 LDL Cholesterol, Calculated 0-99 mg/dL 145.600 VLDL Cholesterol mg/dL 23.400 HDL Cholesterol >39 mg/dL 26 Cholesterol/HDL Ratio 0.0-4.4 7.50 Magnesium Level 1.6-2.6 mg/dL 2.2 Total Bilirubin 0.0-1.2 mg/dL 0.4 Aspartate Amino Transf (AST/SGOT) 0-50 U/L 74 Alanine Aminotransferase (ALT/SGPT) 0-44 U/L 73 Alkaline Phosphatase 25-150 U/L 83 Total Protein 6.4-8.4 g/dL 6.5 Albumin 3.4-5.0 g/dL 3.7 Test Range/Units 09/08/16 03:25 Sodium Level 134-144 mEq/L 138 Potassium Level 3.5-5.2 mEq/L 4.0 Chloride Level 97-108 mEq/L 96 Carbon Dioxide Level 18-29 mmol/L 27 Blood Urea Nitrogen 6-24 mg/dL 15 Creatinine 0.76-1.27 mg/dL 0.81 Estimat Glomerular Filtration Rate >59 mL/min 105 Glucose Level 60-99 mg/dL 141 Calcium Level 8.5-10.1 mg/dL 9.1 Discharge Medications Other Medication Instructions You have received instructions on the medications your physician has prescribed at discharge. A list of these medications has been provided to you. Keep this and a list of all current medications with you. Keep the dates when you received the Flu and Pneumococcal (Pneumonia) Vaccines. Last known date of receiving Flu Vaccine 12/16 Last known date of receiving Pneumococcal (Pneumonia) Vaccine Continue - 40 mg Lasix daily by mouth. - 3.125 mg Carvedilol Twice a day by mouth. - 10 mg potassium daily by mouth. - Your physician may titrate your Carvedilol from 3.125 mg twice daily to 6.25 mg twice daily to help with your elevated heart rate for a goal of 60-75 bpm. Your physician may also consider adding Spironolactone this week to continue diuresis therapy for your CHF. Continue daily Miralax and Colace for constipation. Diet CHF Discharge Diet: Low fat, Low Sodium, Diabetic Diet Instructions CHF Low Salt diet ( 2 grams or less sodium/day) Choose foods and drinks with low or no salt. Remove salt shaker from the table. Read Nutritional Facts labels. Activity CHF Discharge Activity: Try not to overdue, Be up and about, Activity as energy allows, Stop when short breath/pain/dizzy Weight Monitoring 1. Weigh yourself every day at the same time and write it down. 2. Take your weight log to your doctor visits. 3. Call your doctor if you gain 3-5 pounds over 2-3 days. 4. Your weight today is 191.58 lbs. Additional Instructions CHF Teaching Packet given and: Yes Smoking--Tobacco Use If you smoke, you are strongly encouraged to stop. If you have recently quit smoking, CONGRATULATIONS. For further information to stop smoking or to remain smoke-free, Follow Up Plan Follow Up Plan Start Weekly visits to the CHF clinic. Establish with the [facility] residency clinic within 1 week, preferably by 01/17. Wear your life vest as recommended. Close weekly follow up appointments with your primary care physician. [facility] as primary care or until you re- establish with the [facility]. Follow up with lab work in 1 week. BMP for potassium level. Follow up Dr. Valadez in 2-3 months for ICD evaluation. Follow Up: Days (2 weeks. ) Cardiology Follow-up Provider: 3 weeks (2-[address] Sandoval. ) Report or call your Doctor REPORT TO YOUR DOCTOR OR SEEK MEDICAL ATTENTION: *Shortness of breath or have more difficulty breathing. *Swelling of your feet, ankles, hands or abdomen. *Feeling tired with normal activity or experiencing dizziness or fainting. *Trouble sleeping or waking up feeling short of breath or coughing. *Chest pain or pressure. *Weight gain of 3-5 pounds over 2-3 days. *Inability to take medications or follow treatment plan Heart Attach warning signs HEART ATTACK WARNING SIGNS * Chest discomfort. *Discomfort or pain in one or both arms, back, neck, jaw or stomach. *Shortness of breath. *Breaking out in a cold sweat, nausea, or lightheadedness. If you're having heart attack warning signs: CALL 11-01-. DON'T WAIT MORE THAN A FEW MINUTES - 5 MINUTES AT MOST - TO CALL - - . Miguel Gordon MD 09/08/16 1556: CHF Discharge Instructions Attending Statement The patient was seen and examined together with Dr. Gómez on 09/08/2016 and I agree with the history, exam and plan as outlined in the note above. . MORELIA GÓMEZ DO Sep 08, 2016 13:24 Miguel Gordon MD Sep 08, 2016 15:56
[2016-09-08] MEDS ORDERED: ATOR20TA65 PO (13:28)
[2016-09-08] MEDS ORDERED: ASPI81TA3 PO (13:28)
[2016-09-08] MEDS ORDERED: CLOP75TA28 PO (13:28)
[2016-09-08] MEDS ORDERED: CARV3.122 PO (13:28)
[2016-09-08] MEDS ORDERED: POTA10TA38 PO (13:28)
[2016-09-08] MEDS ORDERED: FURO40TA4 PO (13:28)
--- NOTE | 2016-09-08 14:07 | NUR ---
Social Work: Multidisciplinary Rounds/Discharge D: Pt discussed in am rounds; pt is medically stable for discharge. Pt needs to follow up with Cardiology as an outpatient and the CHF clinic. BILLBOARD ERECTOR HELPER met with the patient at bedside and provided him with the phone number for the cardiology clinic in [place]. Pt states he will call to schedule an appointment for the CHF clinic and cardiac rehab. Pt expresses no concerns about discharge and is eager to leave. No barriers or concerns about discharge identified. Pt has a life vest. A: Pt who is I at baseline and ambulating I during admission. No concerns about pt's capacity for self care. P: Pt to discharge home via POV and no further sw needs. HERI Urbina
--- NOTE | 2016-09-08 15:07 | NUR ---
Discharge Pt discharged home today at 15:00. Pt off floor via ambulation. Pt left room after getting dressed without waiting for nurse or aid despite being told we would walk him out. Pt was provided with prescriptions, follow up instructions, and ed materials on meds, OR, and H/H diet. Follow up appointments will be made by [facility] on Friday and pt will be called with times. All questions answered and pt voiced understanding.
--- NOTE | 2016-09-08 19:53 | PCM.DC.MED ---
Discharge Summary Date of Service Sep 08, 2016 Dates of Hospitalization Date of Hospital Admission Sep 02, 2016 at 01:25 Date of Discharge: Sep 08, 2016 Providers: Admitting Physician: Dinorah Carter MD Primary Care Physician: Donnie Bruce MD Attending Physician: Dinorah Carter MD Diagnosis at Time of Discharge Diagnosis at Time of Discharge Chest pain due to NSTEMI Acute abdominal pain Acute leukocytosis with left shift Hyperglycemia in a known type II diabetic Prolactinoma Hypertension Hypothyroidism Procedures XRay, CTs & MRIs CXR 09/02 IMPRESSION: Diffuse interstitial pulmonary edema, consistent with evolving congestive heart failure. Dictated by: Anderson Costa M.D. on 09/02/2016 at 7:57 Approved by: Anderson Costa M.D. on 09/02/2016 at 7:58 Abd US 09/02 IMPRESSION: 1. Borderline hepatomegaly without splenomegaly. Probable hepatic steatosis but nonspecific. 2. Normal gallbladder and bile ducts. 3. No hydronephrosis. Possibility of small nonobstructing renal calculi not excluded. 4. No ascites. Small bilateral pleural effusions incidentally noted. Dictated by: Kai Echols M.D. on 09/02/2016 at 8:56 Approved by: Kai Echols M.D. on 09/02/2016 at 9:02 Cardiac Echo Impression Echo 09/03/2016 Left ventricular size is at the upper limits of normal but is unchanged compared to the previous study. Left ventricular systolic function is severely reduced with the ejection fraction estimated to be 15-20% which is markedly worse compared to the prior exam, now with akinesis of of the entire septum and majority of the anterior wall, extending to and including the distal periapical segments. The inferior wall has severe hypokinesis to akinesis. The posterolateral wall has fairly norml contractility. These wall motion abnormalities are new compared to the previous study. The E/A wave ratio > 2.0 could be indicative of increased preload and is significantly higher compared to the previous study. Brief History 56 y/o male with a hx of insulin dependent DM type II who presented to the ED complaining of substernal chest pain scribed as a pressure and bandlike sensation around his chest with 7 out of 10 chest pain onset approximately 11: 30 Friday night 09/01/2016, the pain occurred while he was exerting himself walking. The pain radiates to his left arm, and is associated with diaphoresis , shortness of breath, and abdominal pain. The pt has been having chest pain for 2 weeks but it got significantly worse today. The pain is exacerbated with deep breathing. The patient describes his abdominal pain as, "some sort of blockage in the abdomen". He states that he has taken laxatives and done enemas and has passed a bowel movement but without relief of his abdominal discomfort and distention. He denies using Aspirin or other blood thinners. He states his blood glucose at home was 172, in the ED, it is recorded at 157. In the ED the patient had EKG showed sinus tachycardia with a rate of 110, extensive ST elevation in leads V1 through V5 and ST segment depression in V6, consistent with anterior lateral infarct. troponin 0.849 Patient was taken to the [facility] by Dr. Juarez for emergent percutaneous coronary intervention. And he was found to have 90% stenosis of his LAD. Patient had stent placed. He was found to have HFrEF and began a dieresis regimen. A Life vest was received along with follow up instructions , medication adjustments and follow up appointments with CHF clinic, close primary care follow up in 2-3 days, cardiology follow up in 1-2 weeks. Hospital Course Chest pain due to NSTEMI, present on admission. Resolved. - Patient taken to experimental machining lab manager with Dr. Barker on 09/02, 2 stents placed in proximal LAD - Patient taken to experimental machining lab manager again with Dr. Barker on 09/04, no intervention possible for RCA - Echo 09/03/16 as above - Continue daily aspirin 325mg, plavix 75mg, Atorvastatin 80mg, Carvedilol 3.125mg twice daily - LifeVest, CHF clinic as outpatient - Increased furosemide to 40mg IV to increase diuresis; will transition to PO depending on his response - Schedule follow up with Dr. Sandoval in 2-3 weeks for viability study - Schedule follow up Dr. Valadez in 2-3 months for ICD evaluation Acute abdominal pain, and distention, present on admission. Resolved. - LFT's normalized - Lactic acid 1.3 - Abd US as above Acute leukocytosis with left shift, as on admission. Resolved. - Likely secondary to STEMI. - Patient continues to have normal infectious markers, benign exam Hyperglycemia in a known type II diabetic, present on admission, Improved. - HA1C 9.7 - Patient unable to tolerate metformin - Lantus 35 units at night with BS 155 this morning - Medium correctional scale, diet as above Prolactinoma, presumed stable. - Cabergoline 0.5mg daily Hypertension - Carvedilol as above Hypothyroidism - Levothyroxine 12.5 micrograms Disposition: Patient has been discharged today (09/08/16), medically stable. Exam Vital Signs (Last) Date Time Temp Pulse Resp B/P Pulse Ox O2 Delivery O2 Flow Rate FiO2 09/08/16 12:12 36.6 75 22 102/67 94 Room Air 09/07/16 11:49 2.00 Exam General: Elderly sitting upright without oxygen HEENT: NCAT, PERRLA, EOMI, membranes pink and moist Neck: Soft with full ROM, mild JVD, no thyromegaly Lungs: CTA bilaterally, no wheezes/rales/rhonchi Heart: RRR, normal S1-S2 present, no murmur/rub/click Abd: Soft, nontender, nondistended. Bowel sounds present, tympanic on percussion. No guarding. Extremities: No clubbing/cyanosis/edema Neurologic: CN 2-12 intact, muscle strength normal in all extremities. No focal deficits. Skin: Warm, dry Psychiatric normal mood and affect Test 09/02/16 00:20 09/02/16 00:50 09/02/16 03:20 09/02/16 06:00 Hemoglobin A1c 9.7% (4.8-5.6) Lactic Acid Level 1.3mmol/L (0.4-2.0) Thyroid Stimulating Hormone (TSH) 1.780uIU/mL (0.450-4.500) Hold Joy Top Tube Received (Received) Test 09/02/16 14:40 09/03/16 05:00 09/05/16 05:15 09/06/16 03:45 Total Creatine Kinase 3773U/L (21-232) Creatine Kinase MB 349.3ng/mL (0.0-10.4) Creatine Kinase MB % 9.3% (0.0-5.0) Troponin T 5.3ug/L (0.0-0.011) Triglycerides Level 117mg/dL (0-149) Cholesterol Level 195mg/dL (100-199) LDL Cholesterol, Calculated 145.600mg/dL (0-99) VLDL Cholesterol 23.400mg/dL HDL Cholesterol 26mg/dL (>39) Cholesterol/HDL Ratio 7.50 (0.0-4.4) White Blood Count 8.6th/mm3 (3.8-10.1) Red Blood Count 5.29mil/mm3 (4.40-5.80) Hemoglobin 15.1g/dL (13.8-17.2) Hematocrit 45.2% (41.0-50.0) Mean Corpuscular Volume 85.4fL (81-100) Mean Corpuscular Hemoglobin 28.5pg (27.0-35.0) Mean Corpuscular Hemoglobin Concent 33.4% (32.0-37.0) Red Cell Distribution Width 14.1% (12.3-15.4) Platelet Count 376bil/L (150-400) Neutrophils (%) (Auto) 69.2% (40-74) Lymphocytes (%) (Auto) 14.5% (14-46) Monocytes (%) (Auto) 12.0% (4-12) Eosinophils (%) (Auto) 4.0% (0-5) Basophils (%) (Auto) 0.1% (0-3) Magnesium Level 2.2mg/dL (1.6-2.6) Test 09/07/16 03:30 09/08/16 03:25 Total Bilirubin 0.4mg/dL (0.0-1.2) Aspartate Amino Transf (AST/SGOT) 74U/L (0-50) Alanine Aminotransferase (ALT/SGPT) 73U/L (0-44) Alkaline Phosphatase 83U/L (25-150) Total Protein 6.5g/dL (6.4-8.4) Albumin 3.7g/dL (3.4-5.0) Sodium Level 138mEq/L (134-144) Potassium Level 4.0mEq/L (3.5-5.2) Chloride Level 96mEq/L (97-108) Carbon Dioxide Level 27mmol/L (18-29) Blood Urea Nitrogen 15mg/dL (6-24) Creatinine 0.81mg/dL (0.76-1.27) Estimat Glomerular Filtration Rate 105mL/min (>59) Glucose Level 141mg/dL (60-99) Calcium Level 9.1mg/dL (8.5-10.1) Microbiology Results MRSA negative Discharge Medications Discharge Medications Amlodipine (Amlodipine) 10 Mg Tablet 10 MG PO DAILY (Reported) Aspirin Chew (Aspirin Chew) 81 Mg Chew 81 MG PO DAILY Prescribed by: MORELIA GÓMEZ DO Atorvastatin Calcium (Atorvastatin Calcium) 20 Mg Tablet 80 MG PO HS Prescribed by: MORELIA GÓMEZ DO Cabergoline (Cabergoline) 0.5 Mg Tablet 0.5 MG PO WEEKLY (Reported) Carvedilol (Carvedilol) 3.125 Mg Tablet 3.125 MG PO BID Prescribed by: MORELIA GÓMEZ DO Clopidogrel (Clopidogrel) 75 Mg Tablet 75 MG PO DAILY Prescribed by: MORELIA GÓMEZ DO Furosemide (Furosemide) 40 Mg Tablet 40 MG PO DAILY Prescribed by: MORELIA GÓMEZ DO Levothyroxine Sodium (Levo-T) 50 Mcg Tablet 50 MCG PO DAILY (Reported) Losartan/HCTZ 50-12.5 mg (Losartan/HCTZ 50-12.5 mg) 1 Each Tablet 1 TABLET PO DAILY (Reported) Potassium Chloride (Potassium Chloride) 10 Meq Tab.er.prt 10 MEQ PO DAILY TAKE WITH FOOD Prescribed by: MORELIA GÓMEZ DO Additional med instructions Continue - 40 mg Lasix daily by mouth. - 3.125 mg Carvedilol Twice a day by mouth. - 10 mg potassium daily by mouth. - Your physician may titrate your Carvedilol from 3.125 mg twice daily to 6.25 mg twice daily to help with your elevated heart rate for a goal of 60-75 bpm. Your physician may also consider adding Spironolactone this week to continue diuresis therapy for your CHF. Continue daily Miralax and Colace for constipation. Followup Plan Disposition: Home. Follow-up plan Start Weekly visits to the CHF clinic. Establish with the [facility] residency clinic within 1 week, preferably by 01/17. Wear your life vest as recommended. Close weekly follow up appointments with your primary care physician. The [facility] clinic can accommodate as primary care or until you re- establish with the [facility]. Follow up with lab work in 1 week. BMP for potassium level. Follow up Dr. Valadez in 2-3 months for ICD evaluation. Time spent Greater than 30 minutes was spent in preparation of discharge with greater than 50% of that time dedicated to patient counseling and coordination of care. . Attending Statement The patient was seen and examined together with Dr. Gómez on 09/08/2016 and I agree with the history, exam and plan as outlined in the note above. . copies to: Segundo Valadez MD; [facility] Residency [facility]; Harjinder Sandoval MD, COREY P DO Sep 08, 2016 19:48 Miguel Gordon MD Sep 09, 2016 09:16
== END 2016-09-08 15:00 | disposition home or self-care (01) | DRG 247 ==
LOC: SED 00:26 → CCU 01:20 → PCC 08:36
PROVIDERS: ADMIT Internal Medicine Interventional Cardiology; ATTEND Internal Medicine Interventional Cardiology
PROC: 027035Z Dilation of Coronary Artery, One Artery with Two Drug-eluting Intraluminal Devices, Percutaneous Approach (ICD-10-PCS; principal; 2016-09-02)
PROC: 4A023N7 Measurement of Cardiac Sampling and Pressure, Left Heart, Percutaneous Approach (ICD-10-PCS; 2016-09-02)
PROC: B2111ZZ Fluoroscopy of Multiple Coronary Arteries using Low Osmolar Contrast (ICD-10-PCS; 2016-09-02)
PROC: B2151ZZ Fluoroscopy of Left Heart using Low Osmolar Contrast (ICD-10-PCS; 2016-09-02)
PROC: 4A033BC Measurement of Arterial Pressure, Coronary, Percutaneous Approach (ICD-10-PCS; 2016-09-04)
DX: I21.09 ST elevation (STEMI) myocardial infarction involving other coronary artery of anterior wall (principal); I10 Essential (primary) hypertension; E03.9 Hypothyroidism, unspecified; Z79.4 Long term (current) use of insulin; E11.65 Type 2 diabetes mellitus with hyperglycemia; D35.2 Benign neoplasm of pituitary gland; E78.00 Pure hypercholesterolemia, unspecified; I25.10 Atherosclerotic heart disease of native coronary artery without angina pectoris; R10.9 Unspecified abdominal pain; I25.5 Ischemic cardiomyopathy

== ENCOUNTER 2016-09-12 09:02 | Emergency (ER) | payer OTHER ==
[~2016-09-12] VITALS: Ht 152.4 cm; Wt 86.8 kg
[~2016-09-12 09:02] MED LIST: AMLO10TA3 PO; ASPI81TA3 PO; ATOR20TA65 PO; CABE0.5T7 PO; CARV3.122 PO; CLOP75TA28 PO; FURO40TA4 PO; LEVO-86 PO; LOSA1TAB69 PO; POTA10TA38 PO
[2016-09-12 09:05] VITALS: BP 105/71; PULSE 85; RESP 12; O2SAT 98
--- NOTE | 2016-09-12 09:14 | ED.REPORT ---
HPI-Cardiac Arrest Date of Service Sep 12, 2016 ED Provider: Zane Mckeon Patient is a 56 year old male with a hx of DM, HTN, hypothyroid, prolactinoma, and CAD with 2 stents on Plavix and Aspirin who presents to the ED s/p a syncopal episode around 0700 this morning where his [employer] cardiac life vest discharged. He was sitting and started feeling lightheaded when he lost consciousness and hit his head on the kitchen table. His syncopal event was unwitnessed but he does not believe he was unconscious for more than 30 minutes. When he came to, he realized he was incontinent of stool. Associated symptoms include mild neck pain. He denies chest pain, SOB, headache, back pain , or any other symptoms. When he took his vest off to shower, he realized his vest had gone off. He has been wearing the vest for 5 days since he was discharged from the hospital. He was originally admitted after having an ND 10 days ago with 2 stents placed. He took all of his daily medications this morning. His amlodipine was discontinued at his appointment yesterday. He called the life vest company after the event and they will send their findings. His assembler molded frames is Dr. Feng. Nursing Notes Stated Complaint: LIFE VEST DISCHARGE Chief Complaint: General Complaint Nursing Notes Reviewed: Yes Allergies: Coded Allergies: No Known Allergies (Unverified , 09/02/16) Scheduled Amlodipine (Amlodipine) 10 Mg Tablet 10 MG PO DAILY Aspirin Chew (Aspirin Chew) 81 Mg Chew 81 MG PO DAILY Atorvastatin Calcium (Atorvastatin Calcium) 20 Mg Tablet 80 MG PO HS Cabergoline (Cabergoline) 0.5 Mg Tablet 0.5 MG PO WEEKLY Carvedilol (Carvedilol) 3.125 Mg Tablet 3.125 MG PO BID Clopidogrel (Clopidogrel) 75 Mg Tablet 75 MG PO DAILY Furosemide (Furosemide) 40 Mg Tablet 40 MG PO DAILY Levothyroxine Sodium (Levo-T) 50 Mcg Tablet 50 MCG PO DAILY Losartan/HCTZ 50-12.5 mg (Losartan/HCTZ 50-12.5 mg) 1 Each Tablet 1 TABLET PO DAILY Potassium Chloride (Potassium Chloride) 10 Meq Tab.er.prt 10 MEQ PO DAILY TAKE WITH FOOD General Time Seen by Provider: 09:14 Chief Complaint Other (Syncope ) Hx Obtained From: Patient Arrived By: Walk-in Onset Occurred: 1 - 4 hours ago Symptom Duration: 16 - 30 minutes (Patient reports "no more than 30 minutes") Recent Healthcare: Recent doctor visit, Recent hospitalization, Previous surgery Past Medical History Past Medical History Hypothyroid prolactinoma CAD Reports: Diabetes mellitus, Hypertension Past Surgical History vasectomy R pinky finger Cardiac stents Smoking History Never Smoker Social History Alcohol Use: 1-3 per week Other Social History: Good social support, Local resident Ambulatory Status Independent Review of Systems Respiratory: Denies: Shortness of breath Cardiovascular: Denies: Chest pain Neurologic: Reports: Lightheaded, Syncope, Denies: Headache Complete sys rev & neg: except as marked. Male: Reports Incontinence Musculoskeletal: Reports: Neck pain, Denies: Back pain Physical Exam Initial Vital Signs Vital Signs (First) Date Time Temp Pulse Resp B/P Pulse Ox O2 Delivery O2 Flow Rate FiO2 09/12/16 09:05 36.7 85 12 105/71 98 Room Air Initial VS: Reviewed, Vital signs normal Skin: Warm, Dry Neurologic: Alert, Oriented, Nonfocal Psychiatric: Mood/affect normal, Behavior normal, Normal thought content General/Constitutional: Awake, Alert, No acute distress Respiratory / Chest: Breath sounds NL, Breath sounds = bilat, No respiratory distress Cardiovascular: Heart rate NL, Regular rhythm Blue gel on L side of chest s/p life vest discharge Abdomen: Soft, Non-tender Head / Eyes: Normocephalic, EOMI Mild redness to L side of face Neck: Atraumatic, Supple, Full range of motion Interpretation & Diagnostics Lab Results Interpretation Result Diagram: 09/12/16 0930 09/12/16 0930 Test 09/12/16 09:30 09/12/16 10:14 09/12/16 10:33 White Blood Count 11.9th/mm3 (3.8-10.1) Red Blood Count 4.27mil/mm3 (4.40-5.80) Hemoglobin 12.1g/dL (13.8-17.2) Hematocrit 36.9% (41.0-50.0) Mean Corpuscular Volume 86.4fL (81-100) Mean Corpuscular Hemoglobin 28.3pg (27.0-35.0) Mean Corpuscular Hemoglobin Concent 32.8% (32.0-37.0) Red Cell Distribution Width 14.0% (12.3-15.4) Platelet Count 453bil/L (150-400) Neutrophils (%) (Auto) 81.8% (40-74) Lymphocytes (%) (Auto) 9.4% (14-46) Monocytes (%) (Auto) 5.6% (4-12) Eosinophils (%) (Auto) 2.6% (0-5) Basophils (%) (Auto) 0.2% (0-3) Sodium Level 135mEq/L (134-144) Potassium Level 4.5mEq/L (3.5-5.2) Chloride Level 95mEq/L (97-108) Carbon Dioxide Level 25mmol/L (18-29) Blood Urea Nitrogen 43mg/dL (6-24) Creatinine 0.87mg/dL (0.76-1.27) Estimat Glomerular Filtration Rate 96mL/min (>59) Glucose Level 221mg/dL (60-99) Calcium Level 9.4mg/dL (8.5-10.1) Magnesium Level 2.1mg/dL (1.6-2.6) Total Bilirubin 0.5mg/dL (0.0-1.2) Aspartate Amino Transf (AST/SGOT) 24U/L (0-50) Alanine Aminotransferase (ALT/SGPT) 44U/L (0-44) Alkaline Phosphatase 77U/L (25-150) Troponin T 1.49ug/L (0.0-0.011) Total Protein 7.5g/dL (6.4-8.4) Albumin 4.1g/dL (3.4-5.0) Hold Urine Received (Received) Hold Joy Top Tube Received (Received) ECG Interpretation ECG Interpretation: Sinus rate 84 Probable L atrial enlargement LVH Inferior and anterior infarct Lateral leads involved Non-specific changes Time: 09:24 Interpreted by: ED physician X-Ray Chest Interpretation Chest Xray Interpretation: IMPRESSION: Marked improvement of previously present pulmonary opacities. Small left pleural effusion remains. Dictated by: Josué Hughes M.D. on 09/12/2016 at 9:43 Approved by: Josué Hughes M.D. on 09/12/2016 at 9:44 View: Portable, 1 view Interpretation / Wet Read by: Interpret - Radiologist Re-Eval/Medical Decision Med Decision/Clinical Course This patient apparently had a syncopal event following a ventricular tachycardia sustained event. His [employer] life vest shocked him and he was converted back to sinus rhythm. The patient says he is back to normal now and feels well. I was somewhat reluctant to send the patient home but Dr. Barker suggests that discharge is appropriate. I asked Dr. Barker to come to the bedside to see and evaluate the patient himself which he has kindly done and believes that it is safe to send the patient home. The patient also states that his blood pressure has been low and did discuss this with who did not recommend any medication changes. Re-Evaluation/Progress #1: Time of Eval: 09:54 Re-Evaluation/Progress Note: Report from [employer] indicates VF and VT for approximately 30 seconds before shock. Re-Evaluation/Progress #2: Time of Eval: 10:40 Re-Evaluation/Progress Note: Discussed plan for discharge. Patient understands and agrees with plan. All questions addressed at this time. Consultation : Referral / Consult Name: Dinorah Carter MD Consulted With: Cardiology Call Returned at: 09:56 [employer]: Will see patient, Agrees with eval, Agrees with plan Note: Discussed pt's case. Will see patient before discharge. Counseled Regarding: Diagnosis, Lab results, Need for follow-up, When/why to return to ED Discharge & Departure Impression: Primary Impression: Ventricular tachycardia Additional Impression: Cardiac arrest Disposition: Home All VS Reviewed: Yes Condition: Improved Additional Instructions: You were in a rhythm called ventricular tachycardia. Dr. Barker believes that it is safe for you to go home with the life vest in place. Follow up as planned otherwise. Continue all of your regular medications. Referrals: Donnie Bruce MD (PCP) Javier Attestation Portions of this note were transcribed by Olivia Flores. I, Dr. Mckeon personally performed the history, physical exam and medical decision-making; I reviewed and confirmed the accuracy of the information in the transcribed note. Signed by: Javier Weathers, 09/12/16 at 1051. copies to: Donnie Bruce MD, Kirk H MD Sep 12, 2016 09:14 OLIVIA FLORES Sep 12, 2016 09:23
--- NOTE | 2016-09-12 09:46 | DRSVH ---
PROCEDURE: X-RAY CHEST ONE VIEW, PORTABLE ([id number]) INDICATIONS: syncope TECHNIQUE: One view of the chest was acquired. COMPARISON: [facility], CR, XR CHEST 1VW (PORTABLE), 09/03/2016, 8:13. FINDINGS: Surgical changes and devices: None. Lungs and pleura: No pleural effusions or pneumothorax. Marked interval improvement in previously no alesha diffuse interstitial lung opacities. Right midlung platelike atelectasis and a small left pleural effusion remains. Mediastinum: Mediastinal contours appear normal. Heart size is normal. Bones and chest wall: No suspicious bony lesions. Overlying soft tissues appear unremarkable. IMPRESSION: Marked improvement of previously present pulmonary opacities. Small left pleural effusion remains. Dictated by: Josué Hughes M.D. on 09/12/2016 at 9:43 Approved by: Josué Hughes M.D. on 09/12/2016 at 9:44
[2016-09-12 09:48] LABS: BASOPHILS % (AUTO) 0.2 % (0-3); EOSINOPHILS % (AUTO) 2.6 % (0-5); MONOCYTES % (AUTO) 5.6 % (4-12); Mean Corpuscular Hemoglobin 28.3 pg (27.0-35.0); Mean Corpuscular Volume 86.4 fL (81-100); NEUTROPHILS % (AUTO) 81.8 % (40-74); Platelet Count 453 bil/L (150-400)
[2016-09-12 10:16] LABS: Magnesium 2.1 mg/dL (1.6-2.6)
[2016-09-12 10:18] LABS: TROPONIN T 1.49 ug/L (0.0-0.011)
[2016-09-12 11:37] VITALS: BP 102/53; PULSE 85; RESP 16; O2SAT 97
== END 2016-09-12 11:38 | disposition home or self-care (01) ==
LOC: SED 09:02
DX: I47.2 Ventricular tachycardia (principal); I46.9 Cardiac arrest, cause unspecified; R55 Syncope and collapse; W22.8XXA Striking against or struck by other objects, initial encounter; Y93.89 Activity, other specified; Y92.010 Kitchen of single-family (private) house as the place of occurrence of the external cause; Y99.8 Other external cause status; M54.2 Cervicalgia; R15.9 Full incontinence of feces; I11.9 Hypertensive heart disease without heart failure; E11.59 Type 2 diabetes mellitus with other circulatory complications; I25.2 Old myocardial infarction; I25.10 Atherosclerotic heart disease of native coronary artery without angina pectoris; E03.9 Hypothyroidism, unspecified; Z95.5 Presence of coronary angioplasty implant and graft; Z79.82 Long term (current) use of aspirin; Z79.01 Long term (current) use of anticoagulants

== ENCOUNTER 2016-09-14 16:14 | Inpatient (IN) | payer OTHER ==
[~2016-09-14] VITALS: Ht 170.2 cm; Wt 85.0 kg
[2016-09-14 16:22] VITALS: BP 155/62; PULSE 93; RESP 20; O2SAT 94
--- NOTE | 2016-09-14 16:22 | ED.REPORT ---
HPI-Cardiac Arrest Date of Service Sep 14, 2016 ED Provider: Zane Mckeon MD Patient is a 56 year old male with a hx of DM, HTN, hypothyroid, prolactinoma, and CAD with 2 stents on Plavix and Aspirin who presents to the ED after his Zoll cardiac life vest discharged while he was sleeping due to an episode of ventricular fibrillation. He was seen at [facility] 2 days ago for a syncopal episode where his lifevest discharged. Pt had a recent heart attack on 09/02/16. His manager flight is Dr. Feng. Nursing Notes Stated Complaint: CARDIAC ARREST/AED/LIFEVEST Chief Complaint: General Complaint Nursing Notes Reviewed: Yes Allergies: Coded Allergies: No Known Allergies (Unverified , 09/02/16) Scheduled Amlodipine (Amlodipine) 10 Mg Tablet 10 MG PO DAILY Aspirin Chew (Aspirin Chew) 81 Mg Chew 81 MG PO DAILY Atorvastatin Calcium (Atorvastatin Calcium) 20 Mg Tablet 80 MG PO HS Cabergoline (Cabergoline) 0.5 Mg Tablet 0.5 MG PO WEEKLY Carvedilol (Carvedilol) 3.125 Mg Tablet 3.125 MG PO BID Clopidogrel (Clopidogrel) 75 Mg Tablet 75 MG PO DAILY Furosemide (Furosemide) 40 Mg Tablet 40 MG PO DAILY Levothyroxine Sodium (Levo-T) 50 Mcg Tablet 50 MCG PO DAILY Losartan/HCTZ 50-12.5 mg (Losartan/HCTZ 50-12.5 mg) 1 Each Tablet 1 TABLET PO DAILY Potassium Chloride (Potassium Chloride) 10 Meq Tab.er.prt 10 MEQ PO DAILY TAKE WITH FOOD General Time Seen by Provider: 16:19 Chief Complaint Other (cardiac arrest) Down Time Prior to EMS: Unknown Hx Obtained From: Patient Arrived By: Walk-in Onset Occurred: Just prior to arrival Symptom Duration: Since onset Severity: Current: No pain currently Recent Healthcare: Recent doctor visit Similar Sx Previous: Yes Past Medical History Past Medical History Hypothyroid prolactinoma CAD Reports: Diabetes mellitus, Hypertension Past Surgical History vasectomy R pinky finger Cardiac stents Smoking History Never Smoker Social History Alcohol Use: 1-3 per week Other Social History: Good social support, Local resident Ambulatory Status Independent Review of Systems Respiratory: Denies: Shortness of breath Cardiovascular: Denies: Chest pain Neurologic: Denies: Change LOC, Confusion, Headache, Syncope Complete sys rev & neg: except as marked. Musculoskeletal: Denies: Extremity pain, Joint pain Physical Exam Initial Vital Signs Vital Signs (First) Date Time Temp Pulse Resp B/P Pulse Ox O2 Delivery O2 Flow Rate FiO2 09/14/16 16:22 36.7 93 20 155/62 94 Room Air Initial VS: Reviewed General/Constitutional: Awake, Alert, Cooperative Respiratory / Chest: Atraumatic, Breath sounds NL, Breath sounds = bilat Cardiovascular: Heart rate NL, Regular rhythm, Heart sounds NL Abdomen: Atraumatic, Soft, Non-tender Head / Eyes: Atraumatic, Normocephalic ENT: Atraumatic, Mucous membranes moist Upper Extremity / MS: Atraumatic, Inspection NL, Full range of motion Lower Extremity / Pelvis / MS: Atraumatic, Inspection NL, Full range of motion Skin: Atraumatic, Color NL, No rash Neurologic: Oriented X3, Speech NL, No motor deficits Wrist / Hand: Atraumatic, Inspection NL, Full range of motion Interpretation & Diagnostics Lab Results Interpretation Result Diagram: 09/14/16 1738 09/14/16 1738 Test 09/14/16 17:38 White Blood Count 7.9th/mm3 (3.8-10.1) Red Blood Count 3.29mil/mm3 (4.40-5.80) Hemoglobin 9.2g/dL (13.8-17.2) Hematocrit 28.4% (41.0-50.0) Mean Corpuscular Volume 86.3fL (81-100) Mean Corpuscular Hemoglobin 28.0pg (27.0-35.0) Mean Corpuscular Hemoglobin Concent 32.4% (32.0-37.0) Red Cell Distribution Width 14.1% (12.3-15.4) Platelet Count 352bil/L (150-400) Neutrophils (%) (Auto) 70.8% (40-74) Lymphocytes (%) (Auto) 14.2% (14-46) Monocytes (%) (Auto) 9.0% (4-12) Eosinophils (%) (Auto) 5.6% (0-5) Basophils (%) (Auto) 0.1% (0-3) Sodium Level 132mEq/L (134-144) Potassium Level 3.9mEq/L (3.5-5.2) Chloride Level 92mEq/L (97-108) Carbon Dioxide Level 25mmol/L (18-29) Blood Urea Nitrogen 18mg/dL (6-24) Creatinine 0.80mg/dL (0.76-1.27) Estimat Glomerular Filtration Rate 106mL/min (>59) Glucose Level 273mg/dL (60-99) Calcium Level 9.3mg/dL (8.5-10.1) Magnesium Level 2.0mg/dL (1.6-2.6) Total Bilirubin 0.4mg/dL (0.0-1.2) Aspartate Amino Transf (AST/SGOT) 30U/L (0-50) Alanine Aminotransferase (ALT/SGPT) 40U/L (0-44) Alkaline Phosphatase 83U/L (25-150) Total Protein 6.6g/dL (6.4-8.4) Albumin 3.7g/dL (3.4-5.0) Hold Joy Top Tube Received (Received) ECG Interpretation Time: 16:19 Interpreted by: ED physician Normal ECG Interpretation: Normal sinus rhythm (rate 93) Re-Eval/Medical Decision Med Decision/Clinical Course I discussed the case with Dr. Bryan from cardiology after reviewing the tracings of the events which looked like ventricular fibrillation and defibrillation. She recommended hospitalization and initiate amiodarone which is accomplished. Consultation #1: Referral / Consult Name: Albertina Gr MD Consulted With: Hospitalist Hospice Rn: Accepts admit Consultation #2: Referral / Consult Name: Sherri Bryan MD Consulted With: Seo Executive: Will see patient Counseled Regarding: Diagnosis, Lab results, Need for follow-up, When/why to return to ED Discharge & Departure Impression: Primary Impression: Ventricular fibrillation Disposition: ADMITTED TO HOSPITAL All VS Reviewed: Yes Condition: Stable Referrals: Donnie Bruce MD (PCP) Nicaibpretty Attestation Portion of this note were transcribed by Flor Fabian. I, Dr. Mckeon, personally performed the history, physical exam, and medical decision-making: I reviewed and confirmed the accuracy for the information in the transcribed note. Signed by: kal Stallings, 09/14/16 1800 copies to: Donnie Bruce MD, Kirk H MD Sep 14, 2016 16:22 Flor Fabian Sep 14, 2016 16:57
[2016-09-14 17:53] LABS: BASOPHILS % (AUTO) 0.1 % (0-3); EOSINOPHILS % (AUTO) 5.6 % (0-5); Mean Corpuscular Volume 86.3 fL (81-100); NEUTROPHILS % (AUTO) 70.8 % (40-74); Platelet Count 352 bil/L (150-400)
[2016-09-14] MEDS ORDERED: Amiodarone 150 mg/100 mL D5W 150 MG in IV Premix 1 EACH IV ONE (18:20)
[2016-09-14] MEDS ORDERED: Amiodarone 360 mg/200 mL D5W 360 MG, Filter, Taxol 14256-28 1 EACH in IV Premix 1 EACH IV SCH (18:20)
[2016-09-14 18:47] VITALS: BP 108/53; PULSE 88; RESP 20; O2SAT 94
[2016-09-14] MEDS ORDERED: Senna-Docusate 8.6-50 mg Tablet PO PRN (20:00)
[2016-09-14] MEDS ORDERED: Ondansetron 2 mg/mL 2 mL Inj IVPUSH PRN ×2 (20:00)
[2016-09-14] MEDS ORDERED: Alum-Mag Hydrox-Simeth 30 mL Suspension PO PRN ×2 (20:00)
[2016-09-14] MEDS ORDERED: Polyethylene Glycol (PEG) 17 Gm Powder PO PRN (20:00)
--- NOTE | 2016-09-14 20:43 | PCM.HPMED ---
Subjective Date of Service Sep 14, 2016 Primary Provider: Admitting Physician: Albertina Gr MD Primary Care Physician: Chi Lee DO Attending Physician: Albertina Gr MD Admit Status: From the Emergency Department, Full Admit, Critical Care Chief Complaint: Recurrent V. fib arrest History of Present Illness: Subjective 56-year-old male who has a history of very artery disease with 2 stents and is currently on Plavix and aspirin. This is all cardiac life S discharge while sleeping due to an episode of ventricular fibrillation today. He was seen at this hospital 2 days ago for syncopal episode and at that time his life S discharged also. He was recently here September 06 with an OR. His community service worker is . Peeler Operator on-call today Dr. Bryan was notified by KHALIDA Almazan and patient was started on IV amiodarone drip and will be seen by cardiology tomorrow a.m.Ppatient is to be getting an AICD evaluation by Dr. Gee in 2-3 months. Last echocardiogram report from September 03 reveals normal LV size but upper limits of normal. Left ventricular systolic function is severely reduced with ejection fraction estimated to be 15-20% which is actively worse compared to prior exam. There was new akinesis of the entire septum and majority of the anterior wall. Inferior wall also had severe hypokinesis to akinesis. Posterior lateral wall has fairly normal contractility. Review of Systems: Review of systems are reviewed and are negative except for as in history of present illness Allergies Coded Allergies: No Known Allergies (Unverified , 09/02/16) Home Medications Scheduled Amlodipine (Amlodipine) 10 Mg Tablet 10 MG PO DAILY Aspirin Chew (Aspirin Chew) 81 Mg Chew 81 MG PO DAILY Atorvastatin Calcium (Atorvastatin Calcium) 20 Mg Tablet 80 MG PO HS Cabergoline (Cabergoline) 0.5 Mg Tablet 0.5 MG PO WEEKLY Carvedilol (Carvedilol) 3.125 Mg Tablet 3.125 MG PO BID Clopidogrel (Clopidogrel) 75 Mg Tablet 75 MG PO DAILY Furosemide (Furosemide) 40 Mg Tablet 40 MG PO DAILY Levothyroxine Sodium (Levo-T) 50 Mcg Tablet 50 MCG PO DAILY Losartan/HCTZ 50-12.5 mg (Losartan/HCTZ 50-12.5 mg) 1 Each Tablet 1 TABLET PO DAILY Potassium Chloride (Potassium Chloride) 10 Meq Tab.er.prt 10 MEQ PO DAILY TAKE WITH FOOD PMH Past Medical History Past Medical History Hypothyroid prolactinoma CAD Reports: Diabetes mellitus, Hypertension Past Surgical History vasectomy R pinky finger Cardiac stents Family History Estimated significant cardiac issues Social History Hx Alcohol Use: Yes (couple hard liquor drinks a week) Smoking Status: Never Smoker Living Arrangement: with Family Exam Vital Signs Vital Sign - Last Date Time Temp Pulse Resp B/P Pulse Ox O2 Delivery O2 Flow Rate FiO2 09/14/16 18:47 36.9 88 20 108/53 94 Room Air Exam Constitutional: Middle-aged male in no acute distress Head: Normocephalic atraumatic Chest: Clear to auscultation Cor: Regular rate and rhythm S1-S2 without murmur Abdomen: Soft nontender bowel sounds present Extremities: No pedal edema Skin: No rashes Psych: Normal mood and affect Neuro: Alert and oriented 3, motor strength is intact bilaterally Lab and Diagnostics Labs Laboratory Tests 72 Hours Test 09/14/16 17:38 White Blood Count 7.9th/mm3 (3.8-10.1) Red Blood Count 3.29mil/mm3 (4.40-5.80) Hemoglobin 9.2g/dL (13.8-17.2) Hematocrit 28.4% (41.0-50.0) Mean Corpuscular Volume 86.3fL (81-100) Mean Corpuscular Hemoglobin 28.0pg (27.0-35.0) Mean Corpuscular Hemoglobin Concent 32.4% (32.0-37.0) Red Cell Distribution Width 14.1% (12.3-15.4) Platelet Count 352bil/L (150-400) Neutrophils (%) (Auto) 70.8% (40-74) Lymphocytes (%) (Auto) 14.2% (14-46) Monocytes (%) (Auto) 9.0% (4-12) Eosinophils (%) (Auto) 5.6% (0-5) Basophils (%) (Auto) 0.1% (0-3) Sodium Level 132mEq/L (134-144) Potassium Level 3.9mEq/L (3.5-5.2) Chloride Level 92mEq/L (97-108) Carbon Dioxide Level 25mmol/L (18-29) Blood Urea Nitrogen 18mg/dL (6-24) Creatinine 0.80mg/dL (0.76-1.27) Estimat Glomerular Filtration Rate 106mL/min (>59) Glucose Level 273mg/dL (60-99) Calcium Level 9.3mg/dL (8.5-10.1) Magnesium Level 2.0mg/dL (1.6-2.6) Total Bilirubin 0.4mg/dL (0.0-1.2) Aspartate Amino Transf (AST/SGOT) 30U/L (0-50) Alanine Aminotransferase (ALT/SGPT) 40U/L (0-44) Alkaline Phosphatase 83U/L (25-150) Total Protein 6.6g/dL (6.4-8.4) Albumin 3.7g/dL (3.4-5.0) Hold Joy Top Tube Received (Received) Result Diagram: 09/14/16173709/14/161737 12-lead ECG Sinus at a rate of 93 with poor R-wave progression across precordium and possible criteria for LVH Assessment & Plan # Recurrent ventricular fibrillation with firing of Zoll vest, acute, present on admission -Started on IV amiodarone will continue with maintenance by mouth amiodarone -Cardiology is aware of this patient and will see in a.m. -Check serial cardiac enzymes #Hypothyroidism, chronic Continue with current medication regimen #History of coronary artery disease with cardiomyopathy Continue with home medication regimen #DVT prophylaxis Placed on subcutaneous Lovenox #CODE STATUS Patient is full code VTE Prophylaxis: Sub-Q Enoxaparin Resuscitation Status: CPR: Attempt Resuscitation Time spent 60 minutes Albertina Gr MD Sep 14, 2016 20:43
[2016-09-14 21:02] VITALS: BP 91/56; PULSE 76; RESP 20; O2SAT 98
[2016-09-14 22:09] VITALS: BP 101/64; PULSE 79; RESP 16; O2SAT 99
[2016-09-15 00:22] VITALS: BP 103/67; PULSE 73; RESP 16; O2SAT 98
[2016-09-15] MEDS ORDERED: Sodium Chloride LOK Flush 10 mL Syringe IVFLUSH SCH (00:30)
[2016-09-15 00:52] VITALS: BP 149/86; PULSE 84; RESP 20; O2SAT 91
--- NOTE | 2016-09-15 02:13 | NUR ---
V-fib Patient resting in bed after admit to PCC. Nurse received call from cardiac catheterization technologist that patient may be in distress at 0050. Patient found unresponsive in bed. No response to shouting, sternal rub. Second nurse entered from [place] and called CLOTHING CUTTER. Continued noxious stimuli to patient; patient opened eyes before CLOTHING CUTTER arrived. Patient recognized primary nurse; answered questions appropriately, Ox3 but somnolent. Per cardiac catheterization technologist, patient had begun to have R on T bigeminy at 0050. This progressed to torsades at 0050:21 and then self corrected at 0051:35. Hospitalist to bedside to assess patient; 200mg amiodarone given PO to patient per hospitalist orders. Patient denies chest pain, shortness of breath, discomfort of any kind.
--- NOTE | 2016-09-15 02:37 | NUR ---
Amiodarone Page to Dr. Bryan re: Patient's torsades. Briefed Dr. Bryan on the situation and current status of patient, including the 200mg of amiodarone ordered and given after the PLATING STRIPPER. Per Dr. Bryan, patient to be restarted on amiodarone infusion on the standard protocol. Hold all morning blood pressure medications. Contact cardiology if the patient has systolic blood pressure less than 90.
[2016-09-15] MEDS ORDERED: Amiodarone 360 mg/200 mL D5W 360 MG, Filter, Taxol 14256-28 1 EACH in IV Premix 1 EACH IV SCH (02:45)
[2016-09-15] MEDS ORDERED: Amiodarone 360 mg/200 mL D5W Premix IV ONE (02:52)
[2016-09-15] MEDS ORDERED: IV Premix 1 EACH IV ONE (02:52)
[2016-09-15] MEDS ORDERED: Amiodarone 150 mg/100 mL D5W Premix IV ONE (03:05)
[2016-09-15] MEDS ORDERED: Magnesium Sulfate 2 Gm/50 mL Water Premix IV ONE (03:08)
[2016-09-15 03:16] LABS: BASOPHILS % (AUTO) 0.3 % (0-3); EOSINOPHILS % (AUTO) 5.1 % (0-5); MONOCYTES % (AUTO) 7.7 % (4-12); Mean Corpuscular Volume 87.3 fL (81-100); NEUTROPHILS % (AUTO) 54.8 % (40-74); Platelet Count 419 bil/L (150-400)
[2016-09-15] MEDS ORDERED: Midazolam 100 mg/100 mL Premix IV SCH (03:55)
[2016-09-15 03:59] LABS: Magnesium 2.2 mg/dL (1.6-2.6)
[2016-09-15 04:16] LABS: TROPONIN T 0.634 ug/L (0.0-0.011)
[2016-09-15] MEDS ORDERED: Chlorhexidine 0.12% 15 mL Oral Solution MT SCH (04:30)
[2016-09-15 04:38] VITALS: PULSE 81
--- NOTE | 2016-09-15 04:40 | NUR ---
Code Received call from Tremor Video at 0253 while pulling patient's amiodarone drip from the omnicell that patient was again in v-fib. Ran to bedside to assess patient. Patient unresponsive in bed, unable to rouse, no pulse. Code called and CPR initiated. Code ended after approximately 75 minutes of ACLS without ROSC.
[2016-09-15] MEDS ORDERED: Magnesium Sulfate 50% 1 Gm/2 mL 10 mL Inj ONE (04:59)
[2016-09-15] MEDS ORDERED: Amiodarone 50 mg/mL 3 mL Inj ONE (04:59)
[2016-09-15] MEDS ORDERED: Sodium Bicarb 1 mEq/mL 50 mL Inj ONE (04:59)
[2016-09-15] MEDS ORDERED: Lidocaine 2% 20 mg/mL 5 mL Cardiac Syringe ONE (04:59)
[2016-09-15] MEDS ORDERED: EPINEPHrine 0.1 mg/mL 10 mL Syringe ONE ×2 (04:59)
--- NOTE | 2016-09-15 05:27 | PCM.DC.MEX ---
Discharge Summary Date of Service Sep 15, 2016 Dates of Hospitalization Date of Hospital Admission Sep 14, 2016 at 20:31 Date of Expiration: Sep 15, 2016 Time of Expiration: 04:04 Providers: Admitting Physician: Albertina Gr MD Primary Care Physician: Chi Lee DO Attending Physician: Albertina Gr MD Diagnosis at Time of Cardiac arrest secondary to ventricular fibrillation Additional Diagnosis NSTEMI,ischemic cardiomyopathy Consultations Cardiology Procedures XRay, CTs & MRIs PROCEDURE: X-RAY CHEST ONE VIEW, PORTABLE ([id number]) INDICATIONS: syncope TECHNIQUE: One view of the chest was acquired. COMPARISON: [facility], CR, XR CHEST 1VW (PORTABLE), 09/03/2016, 8: 13. FINDINGS: Surgical changes and devices: None. Lungs and pleura: No pleural effusions or pneumothorax. Marked interval improvement in previously noted diffuse interstitial lung opacities. Right midlung platelike atelectasis and a small left pleural effusion remains. Mediastinum: Mediastinal contours appear normal. Heart size is normal. Bones and chest wall: No suspicious bony lesions. Overlying soft tissues appear unremarkable. IMPRESSION: Marked improvement of previously present pulmonary opacities. Small left pleural effusion remains. Dictated by: Josué Hughes M.D. on 09/12/2016 at 9:43 Approved by: Josué Hugehs M.D. on 09/12/2016 at 9:44 ECG 12 Lead Sinus at a rate of 93 with poor R-wave progression across precordium and possible criteria for LVH Brief History Subjective 56-year-old male who has a history of very artery disease with 2 stents and is currently on Plavix and aspirin. This is all cardiac life S discharge while sleeping due to an episode of ventricular fibrillation today. He was seen at this hospital 2 days ago for syncopal episode and at that time his life S discharged also. He was recently here September 06 with an AL. His embedded engineer is . Global Sales Executive on-call today Dr. Bryan was notified by KHALIDA Almazan and patient was started on IV amiodarone drip and will be seen by cardiology tomorrow a.m.Ppatient is to be getting an AICD evaluation by Dr. Gee in 2-3 months. Last echocardiogram report from September 03 reveals normal LV size but upper limits of normal. Left ventricular systolic function is severely reduced with ejection fraction estimated to be 15-20% which is actively worse compared to prior exam. There was new akinesis of the entire septum and majority of the anterior wall. Inferior wall also had severe hypokinesis to akinesis. Posterior lateral wall has fairly normal contractility. Hospital Course # Recurrent ventricular fibrillation with firing of Zoll vest, acute, present on admission -Started on IV amiodarone will continue with maintenance by mouth amiodarone -Cardiology is aware of this patient and will see in a.m. -Check serial cardiac enzymes #Hypothyroidism, chronic Continue with current medication regimen #History of coronary artery disease with cardiomyopathy Continue with home medication regimen #DVT prophylaxis Placed on subcutaneous Lovenox #CODE STATUS Patient is full code Addendum: During the hospital course of next several hours , patient had a ventricular fibrillation arrest and after CPR ,iv epinephrine,defibrillation , pt returned to sinus rhythm and was awake. Several minutesn later had another ventricular fibrillation arrest and never returned to a perfusing rhythm after 76 minutes of CPR which included iv epinephrine and defibrillation,iv amiodarone and iv lidocaine drips and boluses (see Code sheet details). Dr Bryan was also called for further recommendations regarding management and concurred with what we were doing. Exam Test 09/15/16 03:05 White Blood Count 11.1th/mm3 (3.8-10.1) Red Blood Count 3.53mil/mm3 (4.40-5.80) Hemoglobin 9.9g/dL (13.8-17.2) Hematocrit 30.8% (41.0-50.0) Mean Corpuscular Volume 87.3fL (81-100) Mean Corpuscular Hemoglobin 28.0pg (27.0-35.0) Mean Corpuscular Hemoglobin Concent 32.1% (32.0-37.0) Red Cell Distribution Width 14.3% (12.3-15.4) Platelet Count 419bil/L (150-400) Neutrophils (%) (Auto) 54.8% (40-74) Lymphocytes (%) (Auto) 31.6% (14-46) Monocytes (%) (Auto) 7.7% (4-12) Eosinophils (%) (Auto) 5.1% (0-5) Basophils (%) (Auto) 0.3% (0-3) Sodium Level 131mEq/L (134-144) Potassium Level 3.3mEq/L (3.5-5.2) Chloride Level 90mEq/L (97-108) Carbon Dioxide Level 22mmol/L (18-29) Blood Urea Nitrogen 14mg/dL (6-24) Creatinine 1.01mg/dL (0.76-1.27) Estimat Glomerular Filtration Rate 81mL/min (>59) Glucose Level 302mg/dL (60-99) Calcium Level 9.2mg/dL (8.5-10.1) Magnesium Level 2.2mg/dL (1.6-2.6) Total Bilirubin 0.4mg/dL (0.0-1.2) Aspartate Amino Transf (AST/SGOT) 31U/L (0-50) Alanine Aminotransferase (ALT/SGPT) 43U/L (0-44) Alkaline Phosphatase 85U/L (25-150) Troponin T 0.634ug/L (0.0-0.011) Total Protein 6.6g/dL (6.4-8.4) Albumin 3.8g/dL (3.4-5.0) Thyroid Stimulating Hormone (TSH) 3.000uIU/mL (0.450-4.500) Hold Joy Top Tube Received (Received) Time spent 60 minutes Albertina Gr MD Sep 15, 2016 05:27
[2016-09-20] MEDS ORDERED: PT Own Med->Oral Medication PO SCH (08:30)
== END 2016-09-15 05:00 | disposition expired ==
LOC: SED 16:14 → PCC 20:31 → CCU 09-15 03:17 → PCC 09-15 04:12
PROVIDERS: ADMIT Specialist; ATTEND Specialist
PROC: 5A12012 Performance of Cardiac Output, Single, Manual (ICD-10-PCS; principal; 2016-09-15)
DX: I49.01 Ventricular fibrillation (principal); I21.4 Non-ST elevation (NSTEMI) myocardial infarction; E03.9 Hypothyroidism, unspecified; I25.10 Atherosclerotic heart disease of native coronary artery without angina pectoris; I25.5 Ischemic cardiomyopathy; E11.9 Type 2 diabetes mellitus without complications; I10 Essential (primary) hypertension; Z95.820 Peripheral vascular angioplasty status with implants and grafts